=== PATIENT | male | born 1945 | race Caucasian/White ===

== ENCOUNTER → 2018-04-02 | Day surgery (SDC) | payer MEDICARE, OTHER ==
[~2018-04-02] MED LIST: AMLODIPINE BESYL5 MG PO; ASPIR 8181 MG; ATORVASTATIN CA20 MG PO; CIPRO500 MG PO; DEXAMETHASONE SOD PHOS INJ 4 MG/ML VIAL ONE; FENTANYL CITRATE/PF 100MCG/2 ML INJ ONE; FUROSEMIDE40 MG PO; LEVOFLOXACIN 500MG/D5W 100ML 100 ML IV ONE; LIDOCAINE HCL 2% LOCAL INJ 5 ML SDV VIAL INJ ONE; LYRICA50 MG; MIDAZOLAM HCL 2 MG/2 ML VIAL ONE; NOVOLOG100 UNIT/1; ONDANSETRON HCL INJ 2 MG/ML VIAL ONE; OXYBUTYNIN CHLOR5 MG PO; PIOGLITAZONE PO; PLOGLITAZONE; PROPOFOL IV EMULSION 10 MG/ML 20 ML VIAL ONE; SEVOFLURANE INHAL SOLN 250 ML PEN BTL ONE; TROUJEO; TYLENOL WITH C1 EACH PO; ZEBETA10 MG PO
--- OUTSIDE RECORDS SUMMARY | 2018-04-02 07:32 | XMS REPORT | Clinical Summary ---
Author Author [facility] L [facility] Organization [facility] Address Unknown Phone Unavailable Care Team Providers Care Ultrasound Spec Name Role Phone Paulino Mills DO PCP Allergies Comments Active Allergy Reactions Severity Noted Date Patient states, "It just made me feel funny." Iodine 06/04/2016 Medications End Date Status Medication Sig Dispensed Refills Start Date Active gabapentin (NEURONTIN) Take 600 mg 0 600 mg tablet by mouth 3 7 (three) times a day. Active HYDROcodone-acetaminophen Take 1 tablet 0 (NORCO) 7.5-325 mg per by mouth 6 tablet every 4 (four) hours. Active traMADol-acetaminophen Take 1 tablet 0 (ULTRACET) 37.5-325 mg by mouth 3 7 per tablet (three) times a day as needed. Active pantoprazole (PROTONIX) Take 40 mg by 2 40 MG EC tablet mouth once 7 daily. Active BD ULTRA-FINE SLIME PEN USE 3 NEEDLES 32 gauge x 5/32" DIRECTED WITH 6 needle INSULIN INJECTION 4 TIMES A DAY. Active LYRICA 50 mg capsule Take 50 mg by 0 mouth 3 6 (three) times a day. Active albuterol (PROVENTIL) 2.5 USE 1 UNIT 0 mg /3 mL (0.083 %) DOSE PER 6 nebulizer solution NEBULIZER 3-4 TIMES A DAY Active diazePAM (VALIUM) 5 MG Take 5 mg by 5 tablet mouth 2 (two) 6 times a day as needed for anxiety (related to virtigo). Active ONETOUCH VERIO strip test TEST BLOOD 3 strips GLUCOSE 4 6 TIMES PER DAY Active tamsulosin (FLOMAX) 0.4 Take 0.4 mg 1 mg capsule,extended by mouth once 6 release 24hr daily. Active LANTUS SOLOSTAR 100 INJECT 48 1 unit/mL injection (pen) UNITS IN THE 6 MORNING, 40 UNITS AT NIGHT WITH TITRATION, TOTAL DAILY DOSE UP TO 90 UNITS Active NOVOLOG FLEXPEN 100 INJECT SUB- Q 1 unit/mL insulin pen 26 UNITS 15 6 MINUTES BEFORE EACH MEAL THREE TIMES A DAY Active glimepiride (AMARYL) 4 MG Take 4 mg by 0 tablet mouth as needed. Active fexofenadine (GURINDER) Take 180 mg 0 180 MG tablet by mouth daily as needed. Active aspirin (ECOTRIN) 81 MG Take 81 mg by 0 enteric coated tablet mouth daily. Active atorvastatin (LIPITOR) 80 Take 80 mg by 0 MG tablet mouth daily. Active ONETOUCH DELICA LANCETS 0 30 gauge misc 7 Active meclizine (ANTIVERT) 25 Take 25 mg by 0 mg tablet mouth every 8 7 (eight) hours as needed for dizziness. 12/26/2017 Discontinued ciprofloxacin (CIPRO) 500 Take 500 mg 0 MG tablet by mouth 7 every 12 (twelve) hours. 12/28/2017 Discontinued acyclovir (ZOVIRAX) 800 TAKE 1 TABLET 0 MG tablet BY MOUTH 5 X 7 DAILY FOR 10 DAYS (4 HOURS APART ). 12/22/2017 Discontinued amlodipine-benazepril TAKE 1 1 (LOTREL) 10-20 mg per CAPSULE(S) BY 6 capsule MOUTH DAILY 12/25/2017 Discontinued fluticasone (FLONASE) 50 USE 2 SPRAYS 1 mcg/actuation nasal spray IN EACH 6 NOSTRIL NEEDED 12/25/2017 Discontinued promethazine (PHENERGAN) TAKE 1 TABLET 5 25 MG tablet BY MOUTH 6 TWICE A DAY NEEDED NAUSEA 12/25/2017 Discontinued DECONEX DMX 10-15-380 mg TAKE 1 TABLET 0 tablet BY MOUTH 7 EVERY 6 TO 8 HOURS NEEDED COUGH/CONGEST ION 12/25/2017 Discontinued bisoprolol-hydrochlorothi Take 1 tablet 4 azide (ZIAC) 5-6.25 mg by mouth once 7 per tablet daily. 12/26/2017 Discontinued traMADol (ULTRAM) 50 mg Take 50 mg by 0 tablet mouth 3 7 (three) times a day as needed. 12/30/2017 Discontinued pioglitazone (ACTOS) 15 Take 1 tablet 30 tablet 0 MG tablet (15 mg total) 8 by mouth daily with breakfast for 30 days. 01/26/2018 bisoprolol-hydrochlorothi Take 1 tablet 30 tablet 0 azide (ZIAC) 10-6.25 mg by mouth 8 per tablet daily for 30 days. 01/26/2018 amLODIPine (NORVASC) 10 Take 1 tablet 30 tablet 0 mg tablet (10 mg total) 8 by mouth daily for 30 days. 02/06/2018 ciprofloxacin (CIPRO) 250 Take 1 tablet 84 tablet 0 MG tablet (250 mg 8 total) by mouth 2 (two) times a day for 42 days. 12/30/2017 Discontinued furosemide (LASIX) 40 mg Take 1 tablet 60 tablet 0 tablet (40 mg total) 8 by mouth 2 (two) times a day for 30 days. 01/29/2018 furosemide (LASIX) 40 mg Take 1 tablet 30 tablet 0 tablet (40 mg total) 8 by mouth daily for 30 days. Active Problems Problem Noted Date Dyspnea 12/27/2017 REINALDO inhibitor-aggravated angioedema 12/23/2017 Acute renal failure superimposed on stage 3 chronic kidney disease 12/23/2017 Allergic reaction to food 12/22/2017 Left lower quadrant pain 06/04/2016 Epigastric pain 06/04/2016 Bloating 06/04/2016 Hx of colonic polyps 06/04/2016 Herpes zoster without complication 06/04/2016 Diverticulosis of large intestine without hemorrhage 06/04/2016 Encounters Care Team Description Date Type Specialty Kel Rowe MD Hematuria syndrome; Calculus of kidney; Calculus of ureter 03/27/2018 Hospital Radiology Encounter Kel Rowe MD Hematuria syndrome; Uric acid nephrolithiasis 02/28/2018 Hospital Radiology Encounter Paulino Mills DO Acute bronchitis, unspecified organism 02/20/2018 Hospital Radiology Encounter Paulino Mills DO Acute bronchitis, unspecified organism (Primary Dx) 02/20/2018 Transcribe Access Orders Kel Rowe MD Hematuria syndrome (Primary Dx); Uric acid nephrolithiasis 02/13/2018 Transcribe Access Orders Virginie Alcantara MD Khan, Kamran Ahmed, MD Dyspnea, unspecified type (Primary Dx) 12/27/2017 Hospital General Surgery - Encounter 12/30/2017 Ivone Conn MD 12/25/2017 Anesthesia General Surgery Event Kel Rowe MD Cysto Retrograde-Bilateral, Stent Placement 12/25/2017 Surgery General Surgery Syed Espinosa MD 12/22/2017 Hospital General Surgery - Encounter 12/26/2017 Syed Espinosa MD 12/22/2017 Orders Only General Internal Medicine after 04/01/2017 Family History Medical History Relation Name Comments Diabetes Brother No Known Problems Father Colon cancer Maternal Grandmother No Known Problems Mother Diabetes Sister Relation Name Status Comments Brother Alive Father Maternal Grandmother Mother Sister Alive Social History Date Tobacco Use Types Packs/Day Years Used Never Smoker Smokeless Tobacco: Never Used Tobacco Cessation: Counseling Given: No Alcohol Use Drinks/Week oz/Week Comments No Sex Assigned at Date Recorded Not on file Industry Job Start Date Occupation Not on file Not on file Not on file Travel End Travel History Travel Start No recent travel history available. Last Filed Vital Signs Time Taken Vital Sign Reading 12/30/2017 4:05 PM CDT Blood Pressure 140/69 12/30/2017 4:05 PM CDT Pulse 76 12/30/2017 4:05 PM CDT Temperature 36.8 C (98.3 F) 12/30/2017 4:05 PM CDT Respiratory Rate 17 12/30/2017 4:05 PM CDT Oxygen Saturation 95% - Inhaled Oxygen - Concentration 12/27/2017 11:41 AM CDT Weight 116 kg (255 lb) 12/27/2017 11:41 AM CDT Height 177.8 cm (5' 10") 12/27/2017 11:41 AM CDT Body Mass Index 36.59 Plan of Treatment Health Maintenance Due Date Last Done Comments COLON CANCER SCREENING 1994 SHINGRIX VACCINE (1 of 2) 1994 ZOSTER VACCINE 2004 PNEUMOCOCCAL 2009 POLYSACCHARIDE VACCINE AGE 65 AND OVER PNEUMOCOCCAL-13 2009 INFLUENZA VACCINE 11/20/2017 Implants Device Identifier Shelf Expiration Date Model / Serial / Lot Implanted Type Area Manufactur er 10/17/2020 [id number] / / [id number] Stent Set Ureteral [facility] Surgical N/A: N/A COOK 6fr X 28cm - [id number] Stents UROLOGICAL Implanted: Qty: 1 on 12/25/2017 by Kel Rowe MD Procedures Comments Procedure Name Priority Date/Time Associated Diagnosis XR ABDOMEN 1 VW Routine 03/27/2018 Hematuria syndrome 2:12 PM MURAL PAINTER Calculus of kidney Calculus of ureter ESTIMATED GFR Routine 02/28/2018 9:42 AM MURAL PAINTER POC CREATININE Routine 02/28/2018 9:[address] ABDOMEN PELVIS WO Routine 02/28/2018 Hematuria syndrome CONTRAST 9:13 AM MURAL PAINTER Uric acid nephrolithiasis XR CHEST 2 VW Routine 02/20/2018 Acute bronchitis, 11:01 AM CDT unspecified organism POC GLUCOSE Routine 12/30/2017 4:00 PM CDT POC GLUCOSE Routine 12/30/2017 11:55 AM CDT ECG 12-LEAD STAT 12/30/2017 9:46 AM CDT ZZESTIMATED GFR Routine 12/30/2017 6:28 AM CDT COMPREHENSIVE METABOLIC Routine 12/30/2017 PANEL 6:28 AM CDT HC COMPLETE BLD COUNT Routine 12/30/2017 W/AUTO DIFF 6:28 AM CDT POC GLUCOSE Routine 12/30/2017 6:14 AM CDT POC GLUCOSE Routine 12/29/2017 8:31 PM CDT POC GLUCOSE Routine 12/29/2017 5:11 PM CDT POC GLUCOSE Routine 12/29/2017 11:47 AM CDT POC GLUCOSE Routine 12/29/2017 7:08 AM CDT POC GLUCOSE Routine 12/28/2017 8:36 PM CDT POC GLUCOSE Routine 12/28/2017 5:27 PM CDT POC GLUCOSE Routine 12/28/2017 4:05 PM CDT POC GLUCOSE Routine 12/28/2017 11:59 AM CDT ECHOCARDIOGRAM 2D STAT 12/28/2017 COMPLETE W MMODE SPECTRAL 9:15 AM CDT COLOR DOPPLER ([id number]) POC GLUCOSE Routine 12/28/2017 5:46 AM CDT THYROID STIMULATING Routine 12/28/2017 HORMONE 4:52 AM CDT TROPONIN Timed 12/28/2017 4:52 AM CDT TROPONIN Timed 12/28/2017 2:23 AM CDT TROPONIN Timed 12/27/2017 9:08 PM CDT POC GLUCOSE Routine 12/27/2017 8:53 PM CDT NM LUNG VENTILATION STAT 12/27/2017 PERFUSION 4:55 PM CDT POC GLUCOSE Routine 12/27/2017 4:34 PM CDT URINALYSIS SCREEN AND STAT 12/27/2017 MICROSCOPY, WITH REFLEX 1:15 PM CDT TO CULTURE GRAM STAIN STAT 12/27/2017 1:15 PM CDT URINE CULTURE STAT 12/27/2017 1:15 PM CDT ZZESTIMATED GFR Routine 12/27/2017 12:08 PM CDT B NATRIURETIC PEPTIDE Routine 12/27/2017 12:08 PM CDT TROPONIN Routine 12/27/2017 12:08 PM CDT COMPREHENSIVE METABOLIC Routine 12/27/2017 PANEL 12:08 PM CDT PROTHROMBIN TIME WITH INR Routine 12/27/2017 12:08 PM CDT HC COMPLETE BLD COUNT Routine 12/27/2017 W/AUTO DIFF 12:08 PM CDT ECG ED PRELIMINARY Routine 12/27/2017 INTERPRETATION 11:53 AM CDT ECG 12-LEAD STAT 12/27/2017 11:51 AM CDT XR CHEST 1 VW PORTABLE STAT 12/27/2017 11:47 AM CDT POC GLUCOSE Routine 12/26/2017 4:15 PM CDT POC GLUCOSE Routine 12/26/2017 2:13 PM CDT POC GLUCOSE Routine 12/26/2017 11:10 AM CDT ZZESTIMATED GFR Routine 12/26/2017 6:27 AM CDT BASIC METABOLIC PANEL Routine 12/26/2017 6:27 AM CDT POC GLUCOSE Routine 12/26/2017 6:[address] ABDOMEN PELVIS WO Routine 12/25/2017 CONTRAST 11:12 PM CDT POC GLUCOSE Routine 12/25/2017 8:19 PM CDT POC GLUCOSE Routine 12/25/2017 6:27 PM CDT FL PYELOGRAM RETROGRADE Routine 12/25/2017 4:43 PM CDT POC GLUCOSE Routine 12/25/2017 4:39 PM CDT POC GLUCOSE Routine 12/25/2017 3:23 PM CDT POC GLUCOSE Routine 12/25/2017 12:45 PM CDT POC GLUCOSE Routine 12/25/2017 12:23 PM CDT POC GLUCOSE Routine 12/25/2017 11:41 AM CDT POC GLUCOSE Routine 12/25/2017 10:48 AM CDT POC GLUCOSE Routine 12/25/2017 6:13 AM CDT ZZESTIMATED GFR Routine 12/25/2017 5:42 AM CDT PHOSPHORUS LEVEL Routine 12/25/2017 5:42 AM CDT MAGNESIUM LEVEL Routine 12/25/2017 5:42 AM CDT BASIC METABOLIC PANEL Routine 12/25/2017 5:42 AM CDT POC GLUCOSE Routine 12/24/2017 10:15 PM CDT POC GLUCOSE Routine 12/24/2017 8:48 PM CDT POC GLUCOSE Routine 12/24/2017 4:12 PM CDT PROSTATE SPECIFIC ANTIGEN Routine 12/24/2017 12:26 PM CDT ZZESTIMATED GFR STAT 12/24/2017 12:26 PM CDT HC COMPLETE BLD COUNT STAT 12/24/2017 W/AUTO DIFF 12:26 PM CDT COMPREHENSIVE METABOLIC STAT 12/24/2017 PANEL 12:26 PM CDT POC GLUCOSE Routine 12/24/2017 11:06 AM CDT POC GLUCOSE Routine 12/24/2017 6:17 AM CDT POC GLUCOSE Routine 12/23/2017 11:15 PM CDT POC GLUCOSE Routine 12/23/2017 8:38 PM CDT POC GLUCOSE Routine 12/23/2017 4:34 PM CDT POC GLUCOSE Routine 12/23/2017 12:13 PM CDT US RENAL Routine 12/23/2017 9:28 AM CDT ZZESTIMATED GFR Routine 12/23/2017 9:23 AM CDT COMPREHENSIVE METABOLIC Routine 12/23/2017 PANEL 9:23 AM CDT HC COMPLETE BLD COUNT Routine 12/23/2017 W/AUTO DIFF 9:23 AM CDT POC GLUCOSE Routine 12/23/2017 6:07 AM CDT POC GLUCOSE Routine 12/23/2017 4:08 AM CDT POC GLUCOSE Routine 12/23/2017 12:42 AM CDT POC GLUCOSE Routine 12/22/2017 10:42 PM CDT POC GLUCOSE Routine 12/22/2017 8:53 PM CDT POC GLUCOSE Routine 12/22/2017 7:13 PM CDT POC GLUCOSE Routine 12/22/2017 6:07 PM CDT ZZESTIMATED GFR Routine 12/22/2017 4:10 PM CDT COMPREHENSIVE METABOLIC Routine 12/22/2017 PANEL 4:10 PM CDT HC COMPLETE BLD COUNT Routine 12/22/2017 W/AUTO DIFF 4:10 PM CDT URINE CULTURE Routine 12/22/2017 4:00 PM CDT URINALYSIS SCREEN AND Routine 12/22/2017 MICROSCOPY, WITH REFLEX 3:56 PM CDT TO CULTURE ECG 12-LEAD Routine 12/22/2017 3:14 PM CDT POC GLUCOSE Routine 12/22/2017 2:27 PM CDT after 04/01/2017 Results * XR Abdomen 1 Vw (03/27/2018 2:12 PM MURAL PAINTER) Narrative Performed At EXAMINATION:XR ABDOMEN 1 VW [facility] CLINICAL HISTORY:R31.9 Hematuriaunspecified, N20.0 Calculus of kidney COMPARISON:None. IMPRESSION: A stent is present in the left ureter. There are no associated calcifications There is a nonspecific bowel gas pattern. No free air is identified. Age related changes are present throughout the bony structures without evidence of a suspicious focal lesion. [id number] Procedure Note Hm Interface, Radiology Results Incoming - 03/27/2018 5:52 PM MURAL PAINTER EXAMINATION: XR ABDOMEN 1 VW CLINICAL HISTORY: R31.9 Hematuria unspecified, N20.0 Calculus of kidney COMPARISON: None. IMPRESSION: A stent is present in the left ureter. There are no associated calcifications There is a nonspecific bowel gas pattern. No free air is identified. Age related changes are present throughout the bony structures without evidence of a suspicious focal lesion. [id number] Performing Organization Address City/[facility]/Zipcode Phone Number [facility] [address] [place] [address] * Estimated GFR (02/28/2018 9:42 AM MURAL PAINTER) Estimated GFR 27 (A) mL/min/1.73 m2 [facility] DEPARTMENT OF Comment: PATHOLOGY AND CatergoryUnitsInte GENOMIC MEDICINE rpretation G1 >=90 Normal or high G2 60-89Mildly decreased [id number] Mildly to moderately decreased [id number] Moderately to severely decreased G4 15-29Severely decreased G5 <15Kidney failure The eGFR was calculated using the Chronic Kidney Disease Epidemiology Collaboration (CKD-EPI) equation. Interpretation is based on recommendations of the National Kidney Foundation-Kidney Disease Outcomes Quality Initiative (NKF-KDOQI) published in 2014. Specimen Blood Performing Organization Address City/[facility] Phone Number [facility] DEPARTMENT OF [address] [place] [address] PATHOLOGY AND GENOMIC MEDICINE * POC creatinine (02/28/2018 9:42 AM MURAL PAINTER) POC creatinine 2.3 (H) 0.7 - 1.2 mg/dl [facility] DEPARTMENT OF Comment: PATHOLOGY AND Meter ID: [id number] GENOMIC MEDICINE Doctor Of Podiatric Medicine: Adelaida Zamorano Specimen Blood Performing Organization Address [facility]/Zipcode Phone Number [facility] DEPARTMENT OF [address] [place] [address] PATHOLOGY AND GENOMIC MEDICINE * CT Abdomen Pelvis Wo Contrast (02/28/2018 9:13 AM MURAL PAINTER) Only the most recent of 2 results within the time period is included. Narrative Performed At EXAMINATION:CT ABDOMEN PELVIS WO CONTRAST [facility] CLINICAL HISTORY:72 years Male R31.9 Hematuriaunspecified, N20.0 Calculus of kidney, R31.9N20.0 TECHNIQUE:Multiple axial images of the abdomen and pelvis were obtained without intravenous administration of iodinated contrast. Sagittal and coronal computerized reformatted images were also obtained. The lack of intravenous contrast reduces the sensitivity of detecting solid organ disease. CT imaging was performed with iterative reconstruction techniques and/or automated exposure control to reduce radiation dose. COMPARISON: December 25, 2017 FINDINGS: The liver and spleen appear normal in size and texture. The adrenal glands, and pancreas appear within normal limits. There are multiple surgical clips in the gallbladder fossa consistent with previous cholecystectomy stable since previous. The right kidney appears unremarkable. No calculi or obstruction are noted. On the left there is persistent moderately severe hydronephrosis little changed although perhaps slightly increased over previous. A double pigtail ureteral stent is in place within the renal pelvis adjacent to a calcification in the renal pelvis calcification measures approximately 11 mm x 11 mm. There appears to be another small stone fragment along the course of the ureter proximally measuring approximately 3 mm. These calcifications were not visualized within the ureter on the prior study. Multiple additional calcifications within the left renal pelvis are present with a group of calculi in the upper pole cyst in particular which are difficult to measure as they are adjacent to one another with several measured measured in the 6 mm to 7 mm range. Additional calculi in the mid to lower pole are also noted. The left stent otherwise projects with the distal end curled in the bladder. The colon demonstrates diverticulosis without inflammatory change. Prostate appears mildly enlarged. The appendix appears normal. Extensive vascular calcification is present. There is wedging of one of the lumbar vertebra at L2 and also wedging at T11 unchanged from previous IMPRESSION: 1. Moderate dilation of the left renal pelvis slightly increased when compared to previous. 2. Calculus adjacent to the stent within the renal pelvis measuring approximately 11 x 11 mm and another calculus in the 3 mm range or slightly greater along the course of the stent in the proximal ureter at approximately the L4 level. 3. Multiple currently nonobstructing left intrarenal calculi favoring the upper pole the largest in the 7 mm range [id number] Procedure Note Hm Interface, Radiology Results Incoming - 02/28/2018 9:28 AM MURAL PAINTER EXAMINATION: CT ABDOMEN PELVIS WO CONTRAST CLINICAL HISTORY:72 years Male R31.9 Hematuria unspecified, N20.0 Calculus of kidney, R31.9 N20.0 TECHNIQUE: Multiple axial images of the abdomen and pelvis were obtained without intravenous administration of iodinated contrast. Sagittal and coronal computerized reformatted images were also obtained. The lack of intravenous contrast reduces the sensitivity of detecting solid organ disease. CT imaging was performed with iterative reconstruction techniques and/or automated exposure control to reduce radiation dose. COMPARISON: December 25, 2017 FINDINGS: The liver and spleen appear normal in size and texture. The adrenal glands, and pancreas appear within normal limits. There are multiple surgical clips in the gallbladder fossa consistent with previous cholecystectomy stable since previous. The right kidney appears unremarkable. No calculi or obstruction are noted. On the left there is persistent moderately severe hydronephrosis little changed although perhaps slightly increased over previous. A double pigtail ureteral stent is in place within the renal pelvis adjacent to a calcification in the renal pelvis calcification measures approximately 11 mm x 11 mm. There appears to be another small stone fragment along the course of the ureter proximally measuring approximately 3 mm. These calcifications were not visualized within the ureter on the prior study. Multiple additional calcifications within the left renal pelvis are present with a group of calculi in the upper pole cyst in particular which are difficult to measure as they are adjacent to one another with several measured measured in the 6 mm to 7 mm range. Additional calculi in the mid to lower pole are also noted. The left stent otherwise projects with the distal end curled in the bladder. The colon demonstrates diverticulosis without inflammatory change. Prostate appears mildly enlarged. The appendix appears normal. Extensive vascular calcification is present. There is wedging of one of the lumbar vertebra at L2 and also wedging at T11 unchanged from previous IMPRESSION: 1. Moderate dilation of the left renal pelvis slightly increased when compared to previous. 2. Calculus adjacent to the stent within the renal pelvis measuring approximately 11 x 11 mm and another calculus in the 3 mm range or slightly greater along the course of the stent in the proximal ureter at approximately the L4 level. 3. Multiple currently nonobstructing left intrarenal calculi favoring the upper pole the largest in the 7 mm range [id number] Performing Organization Address City/State/Zipcode Phone Number [facility] [address] [place] [address] * XR Chest 2 Vw (02/20/2018 11:01 AM CDT) Narrative Performed At EXAMINATION:XR CHEST 2 VW [facility] CLINICAL HISTORY:J20.9 Acute bronchitisunspecified, j20.9 COMPARISON:12/27/2017 IMPRESSION: Lungs are clear without infiltrate, pleural effusion or pneumothorax. Cardiomediastinal silhouette is enlarged, unchanged. Calcified thoracic aortic atherosclerotic changes. Osseous degenerative changes. [id number] Procedure Note Hm Interface, Radiology Results Incoming - 02/20/2018 11:08 AM CDT EXAMINATION: XR CHEST 2 VW CLINICAL HISTORY: J20.9 Acute bronchitis unspecified, j20.9 COMPARISON: 12/27/2017 IMPRESSION: Lungs are clear without infiltrate, pleural effusion or pneumothorax. Cardiomediastinal silhouette is enlarged, unchanged. Calcified thoracic aortic atherosclerotic changes. Osseous degenerative changes. [id number] Performing Organization Address City/[facility] Phone Number [facility] [address] [place] [address] * POC glucose (12/30/2017 4:00 PM CDT) Only the most recent of 44 results within the time period is included. POC glucose 216 (H) 65 - 100 mg/dL [facility] DEPARTMENT OF Comment: PATHOLOGY AND Meter ID: [id number] GENOMIC MEDICINE Doctor Of Podiatric Medicine: Tony Green Performing Organization Address City/State/Zipcode Phone Number [facility] DEPARTMENT [address] [address] PATHOLOGY AND GENOMIC MEDICINE * ECG 12 lead (12/30/2017 9:46 AM CDT) Only the most recent of 3 results within the time period is included. Ventricular rate 87 [facility] Atrial rate 87 [facility] NE interval 130 [facility] QRSD interval 98 [facility] QT interval 354 [facility] QTC interval 425 [facility] P axis 1 29 [facility] QRS axis 1 64 [facility] T wave axis 41 [facility] EKG impression Sinus rhythm with frequent [facility] premature ventricular complexes-Possible Left atrial enlargement-Borderline ECG-In automated comparison with ECG of 27-DEC-2017 11:51,-premature ventricular complexes are now present-Vent. rate has increased BY32 BPM- Performing Organization Address City/State/Zipcode Phone Number [facility] [place] [address] [place] [address] * Estimated GFR (12/30/2017 6:28 AM CDT) Only the most recent of 7 results within the time period is included. GFR Non Af Amer 23 (A) mL/min/1.73 m2 [facility] DEPARTMENT OF PATHOLOGY AND GENOMIC MEDICINE GFR Af Amer 28 (A) mL/min/1.73 m2 [facility] DEPARTMENT OF Comment: PATHOLOGY AND Chronic kidney disease: <60 GENOMIC MEDICINE mL/min/1.73m2 Kidney failure: <15 mL/min/1.73m2 The estimated GFR is calculated from the IDMS-traceable Modification of Diet in Renal Disease Equation. The accuracy of the calculation is poor when the creatinine is normal. Calculated values >90 mL/min/1.73m2 are not reported. This equation has not been validated in children (<18 years), women, the elderly (>70 years), or ethnic groups other than Caucasians and Americans. Specimen Plasma specimen Performing Organization Address City/State/Zipcode Phone Number [facility] [address] [place] [address] PATHOLOGY AND GENOMIC MEDICINE * CBC with platelet and differential (12/30/2017 6:28 AM CDT) Only the most recent of 5 results within the time period is included. WBC 7.1 4.2 - 11.0 k/uL [facility] DEPARTMENT OF PATHOLOGY AND GENOMIC MEDICINE RBC 4.05 4.04 - 5.86 m/uL [facility] DEPARTMENT OF PATHOLOGY AND GENOMIC MEDICINE HGB 11.3 (L) 13.0 - 17.3 g/dL [facility] DEPARTMENT OF PATHOLOGY AND GENOMIC MEDICINE HCT 36.8 34.0 - 45.0 % [facility] [facility] DEPARTMENT OF PATHOLOGY AND GENOMIC MEDICINE MCV 90.9 80.0 - 98.0 fL [facility] DEPARTMENT OF PATHOLOGY AND GENOMIC MEDICINE MCH 27.9 27.0 - 34.0 pg [facility] DEPARTMENT OF PATHOLOGY AND GENOMIC MEDICINE MCHC 30.7 (L) 31.5 - 36.5 g/dL [facility] DEPARTMENT OF PATHOLOGY AND GENOMIC MEDICINE RDW - SD 45.9 37.0 - 51.0 fL [facility] DEPARTMENT OF PATHOLOGY AND GENOMIC MEDICINE MPV 10.5 (H) 7.4 - 10.4 fL [facility] DEPARTMENT OF PATHOLOGY AND GENOMIC MEDICINE Platelet count 180 150 - 400 k/uL [facility] DEPARTMENT OF PATHOLOGY AND GENOMIC MEDICINE Nucleated RBC 0.00 /100 WBC [facility] DEPARTMENT OF PATHOLOGY AND GENOMIC MEDICINE Neutrophils 57.5 36.0 - 66.0 % [facility] DEPARTMENT OF PATHOLOGY AND GENOMIC MEDICINE Lymphocytes 23.3 (L) 24.0 - 44.0 % [facility] DEPARTMENT OF PATHOLOGY AND GENOMIC MEDICINE Monocytes 12.2 (H) 0.0 - 6.0 % [facility] DEPARTMENT OF PATHOLOGY AND GENOMIC MEDICINE Eosinophils 5.6 0.0 - 6.0 % [facility] DEPARTMENT OF PATHOLOGY AND GENOMIC MEDICINE Basophils 0.4 0.0 - 1.2 % [facility] DEPARTMENT PATHOLOGY AND GENOMIC MEDICINE Immature granulocytes 1.0 0.0 - 1.0 % [facility] OF PATHOLOGY AND GENOMIC MEDICINE Specimen Blood Performing Organization Address City/State/Zipcode Phone Number [place] [address] [place] [address] PATHOLOGY AND GENOMIC MEDICINE * Comprehensive metabolic panel (12/30/2017 6:28 AM CDT) Only the most recent of 5 results within the time period is included. Sodium 143 135 - 150 mEq/L [facility] DEPARTMENT OF PATHOLOGY AND GENOMIC MEDICINE Potassium 4.6 3.5 - 5.0 mEq/L [facility] DEPARTMENT OF PATHOLOGY AND GENOMIC MEDICINE Chloride 101 98 - 112 mEq/L [facility] DEPARTMENT PATHOLOGY AND GENOMIC MEDICINE CO2 33 (H) 24 - 31 mmol/L [facility] DEPARTMENT OF PATHOLOGY AND GENOMIC MEDICINE Anion gap 9@ANIO 7 - 15 mEq/L [facility] DEPARTMENT OF PATHOLOGY AND GENOMIC MEDICINE BUN 36 (H) 7 - 18 mg/dL [facility] DEPARTMENT OF PATHOLOGY AND GENOMIC MEDICINE Creatinine 2.70 (H) 0.70 - 1.20 mg/dL [facility] DEPARTMENT OF PATHOLOGY AND GENOMIC MEDICINE Glucose 185 (H) 65 - 100 mg/dL [facility] DEPARTMENT OF PATHOLOGY AND GENOMIC MEDICINE Calcium 9.3 8.8 - 10.2 mg/dL [facility] DEPARTMENT OF PATHOLOGY AND GENOMIC MEDICINE Protein 6.6 6.3 - 8.3 g/dL [facility] DEPARTMENT OF PATHOLOGY AND GENOMIC MEDICINE Albumin 3.4 (L) 3.5 - 5.0 g/dL [facility] DEPARTMENT OF PATHOLOGY AND GENOMIC MEDICINE A/G ratio 1.1 0.7 - 3.8 [facility] DEPARTMENT OF PATHOLOGY AND GENOMIC MEDICINE Alkaline phosphatase 58 0 - 129 U/L [facility] DEPARTMENT OF PATHOLOGY AND GENOMIC MEDICINE AST 23 10 - 50 U/L [facility] DEPARTMENT OF PATHOLOGY AND GENOMIC MEDICINE ALT 29 5 - 50 U/L [facility] DEPARTMENT OF PATHOLOGY AND GENOMIC MEDICINE Total bilirubin 0.5 0.2 - 1.2 mg/dL [facility] DEPARTMENT OF PATHOLOGY AND GENOMIC MEDICINE Specimen Plasma specimen Performing Organization Address City/State/Zipcode Phone Number [place] [phone] [place] [address] PATHOLOGY AND GENOMIC MEDICINE * Echocardiogram complete w contrast and 3D if needed (12/28/2017 9:15 AM CDT) Velocity Ratio (V1/V2) 0.77 m/s [facility] IVS,d 0.97 cm [facility] EF 61.23 % [facility] Ascending aorta 3.96 cm [facility] LVPWD,d 1.00 cm [facility] AoV Mean PG 4.65 mmHg [facility] AV LVOT peak gradient 4.98 mmHg [facility] MV mean gradient 1.05 mmHg [facility] MV valve area p 1/2 3.07 cm2 [facility] method PV Pk Grad 3.83 mmHg [facility] E/A ratio 1.05 [facility] E wave decelartion time 226.09 msec [facility] IVRT 64.70 msec [facility] LVOT Diam,S 2.10 cm [facility] LVOT area 3.46 cm2 [facility] LVOT Vmax 1.14 m/s [facility] LVOT VTI 0.29 m [facility] AoV Peak PG 8.87 mmHg [facility] MV Peak E Shashank 0.96 m/s [facility] MV stenosis pressure 1/2 71.76 ms [facility] time MV Peak A Shashank 0.91 m/s [facility] Ao Root Diameter 3.65 cm [facility] AoV Area, Vmax 2.60 cm2 [facility] AoV Area, VTI 2.98 cm2 [facility] AoV Vmax 1.49 m/s [facility] Left Atrium Dimension 4.72 cm [facility] Anterior LV,d 5.35 cm [facility] LV,s 3.58 cm [facility] PV VMAX 0.96 m/s [facility] RVSP (TR) 45.18 mmHg [facility] TR Vpeak 2.97 mm/s [facility] MV E A ratio 1.06 mmHg [facility] TR pk grad 35.18 mmHg [facility] MR peak grad 4.47 mmHg [facility] RVSP 45.18 mmHg [facility] Ao Root Diameter 3.65 cm [facility] LV SYS VOL 53.63 ml [facility] LV MILLER VOL 138.32 ml [facility] LA area s A4C 25.78 cm2 [facility] LA Vol MOD A4C 83.50 ml [facility] LV SV Teich 2D 84.69 ml [facility] LVOT CO 15.81 l/min [facility] LVOT HR for LVOT CO 166.83 bpm [facility] MV Vmax 1.06 m [facility] MV VTI Tips 0.37 m [facility] AoV Vmn 1.04 [facility] IVS s 2D 1.31 [facility] AoV VTI 0.35 m [facility] LVOT Vmn 0.77 [facility] LVOT mean grad 2.78 mmHg [facility] LVPW s PLAX 1.50 cm [facility] MV Decel slope 4.25 m/s2 [facility] Narrative Performed At [facility] Left atrium size is mildly dilated. The left ventricle chamber size is normal. There is mild left ventricular concentric hypertrophy. Left Ventricular ejection fraction is 50 - 55%. The mitral valve appears thickened. There is mild mitral valve regurgitation. Spectral Doppler shows impaired relaxation pattern of left ventricular diastolic filling. There is pericardial effusion. Performing Organization Address City/State/[facility] Mex[facility]ode Phone Number [facility] [address] [place] [address] * Troponin (12/28/2017 4:52 AM CDT) Only the most recent of 4 results within the time period is included. Troponin <0.30 0.00 - 0.30 ng/mL [facility] DEPARTMENT OF Comment: PATHOLOGY AND 0.11 - 1.49 GENOMIC MEDICINE ng/mlMay indicate increased risk of acute coronary syndrome. >=1.5 ng/ml Consistent with acute myocardial infarction. The diagnostic value of a single normal or non-diagnostic result is questionable.Serial samples at 2-6 hour intervals are required to rule out acute myocardial injury. Specimen Plasma specimen Performing Organization Address City/State/Zipcode Phone Number [facility] OF [address] [place] [address] PATHOLOGY AND GENOMIC MEDICINE * Thyroid stimulating hormone (12/28/2017 4:52 AM CDT) TSH 1.96 0.27 - 4.20 uIU/mL [facility] DEPARTMENT OF PATHOLOGY AND GENOMIC MEDICINE Specimen Plasma specimen Performing Organization Address City/[facility]/Zipcode Phone Number [facility] DEPARTMENT OF [address] [place] [address] PATHOLOGY AND GENOMIC MEDICINE * NM Lung Ventilation Perfusion (12/27/2017 4:55 PM CDT) Narrative Performed At CLINICAL HISTORY: [facility] TECHNIQUE: The patient breathed 15-20 mCi of xenon-133 gas through a closed ventilation system while dynamic imaging of the lungs was performed in the posterior and anterior projections. The patient was then injected with 5 mCi of [id number] intravenously, followed by imaging of the lungs in anterior, posterior, and oblique projections. FINDINGS: Nonsegmental, though large, perfusion defect left upper lobe near the hilum and aortic arch. Minimal air trapping in the left lung on ventilation. IMPRESSION: Low Probability for pulmonary embolism. [id number] Procedure Note Interface, Radiology Results Incoming - 12/27/2017 5:01 PM CDT CLINICAL HISTORY: [facility] contrast allergy TECHNIQUE: The patient breathed 15-20 mCi of xenon-133 gas through a closed ventilation system while dynamic imaging of the lungs was performed in the posterior and anterior projections. The patient was then injected with 5 mCi of [id number] intravenously, followed by imaging of the lungs in anterior, posterior, and oblique projections. FINDINGS: Nonsegmental, though large, perfusion defect left upper lobe near the hilum and aortic arch. Minimal air trapping in the left lung on ventilation. IMPRESSION: Low Probability for pulmonary embolism. [id number] Performing Organization Address City/[facility]/Zipcode Phone Number [facility] [address] [place] [address] * Urinalysis screen and microscopy, with reflex to culture (12/27/2017 1:15 PM CDT) Only the most recent of 2 results within the time period is included. Specimen site Clean catch [facility] DEPARTMENT OF PATHOLOGY AND GENOMIC MEDICINE Color, UA Yellow [facility] DEPARTMENT OF PATHOLOGY AND GENOMIC MEDICINE Appearance, UA Clear [facility] DEPARTMENT OF PATHOLOGY AND GENOMIC MEDICINE Specific gravity, UA 1.015 1.001 - 1.035 [facility] DEPARTMENT OF PATHOLOGY AND GENOMIC MEDICINE pH, UA 6.0 5.0 - 8.5 [facility] DEPARTMENT OF PATHOLOGY AND GENOMIC MEDICINE Protein, UA 2+ (A) Negative [facility] DEPARTMENT OF PATHOLOGY AND GENOMIC MEDICINE Glucose, UA 2+ (A) Negative [facility] DEPARTMENT OF PATHOLOGY AND GENOMIC MEDICINE Ketones, UA Negative Negative [facility] DEPARTMENT OF PATHOLOGY AND GENOMIC MEDICINE Bilirubin, UA Negative Negative [facility] DEPARTMENT OF PATHOLOGY AND GENOMIC MEDICINE Blood, UA Large (A) Negative [facility] DEPARTMENT OF PATHOLOGY AND GENOMIC MEDICINE Nitrite, UA Negative Negative [facility] DEPARTMENT OF PATHOLOGY AND GENOMIC MEDICINE Urobilinogen, UA Negative <2.0 [facility] DEPARTMENT OF PATHOLOGY AND GENOMIC MEDICINE Leukocyte esterase, UA Moderate (A) Negative [facility] DEPARTMENT OF PATHOLOGY AND GENOMIC MEDICINE WBC, UA 102 (H) 0 - 1 /HPF [facility] DEPARTMENT OF PATHOLOGY AND GENOMIC MEDICINE RBC, UA >200 (H) 0 - 5 /HPF [facility] DEPARTMENT OF PATHOLOGY AND GENOMIC MEDICINE Bacteria, UA None seen None seen [facility] DEPARTMENT OF PATHOLOGY AND GENOMIC MEDICINE Yeast, UA None seen [facility] DEPARTMENT OF PATHOLOGY AND GENOMIC MEDICINE Yeast with pseudohyphae, None seen [facility] DEPARTMENT OF UA PATHOLOGY AND GENOMIC MEDICINE Specimen Urine Performing Organization Address City/[facility]/Zipcode Phone Number [facility] DEPARTMENT [address] [place] [address] PATHOLOGY AND GENOMIC MEDICINE * Gram stain (12/27/2017 1:15 PM CDT) Gram stain result No organisms seen [facility] DEPARTMENT OF Comment: PATHOLOGY AND Specimen Information GENOMIC MEDICINE Specimen Source: Urine Specimen Site: Clean catch Specimen Urine Performing Organization Address City/[facility] Mexicocode Phone Number [facility] [place] [place] [address] PATHOLOGY AND GENOMIC MEDICINE * Urine culture (12/27/2017 1:15 PM CDT) Only the most recent of 2 results within the time period is included. Urine culture isolate Gram positive frandy [facility] DEPARTMENT OF 10-1 cfu/ml PATHOLOGY AND (A) GENOMIC MEDICINE Comment: Specimen Information Specimen Source: Urine Specimen Site: Clean catch Specimen Urine Performing Organization Address City/[facility]/Zipcode Phone Number [facility] DEPARTMENT OF [address] [place] [id number] PATHOLOGY AND GENOMIC MEDICINE * Prothrombin time with INR (12/27/2017 12:08 PM CDT) Prothrombin time 14.0 12.0 - 15.0 sec [facility] DEPARTMENT OF PATHOLOGY AND GENOMIC MEDICINE INR 1.07 0.92 - 1.12 [facility] DEPARTMENT OF Comment: PATHOLOGY AND For patients on anticoagulant GENOMIC MEDICINE therapy, reference ranges below: Indication: INR Value Treatment of Venous Thrombosis, 2.0-3.0 pulmonary emboli, or prophylaxis of a venous thrombosis, or systemic emboli. High dose, high risk patients 3.0-4.5 with mechanical valves. NOTE:INR values over 3.0 are sometimes associated with gastrointestinal hemorrhage, especially values over 4.0. Specimen Blood Performing Organization Address City/[facility]/[place] [address] PATHOLOGY AND [email or web address] MEDICINE * B natriuretic peptide (12/27/2017 12:08 PM CDT) BNP 211 (H) 0 - 100 pg/mL [facility] DEPARTMENT OF PATHOLOGY AND GENOMIC MEDICINE Specimen Blood Performing Organization Address City/[facility] [place] [address] PATHOLOGY AND [email or web address] 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 No change compared to previous Hypoinflation of the lungs unchanged. Mild interstitial scarring as before. No infiltrate congestion or effusion. No pneumothorax Cardiomediastinal silhouette normal size. Mild vascular ectasia and atherosclerosis Old rib fractures on the right. Cholecystectomy clips incidentally noted. Contrast in the colon Single view chest [id number] Procedure Note Hm Interface, Radiology Results Incoming - 12/27/2017 11:54 AM CDT EXAMINATION: XR CHEST 1 VW PORTABLE CLINICAL HISTORY: Chest Pain COMPARISON: March 20, 2016 chest IMPRESSION: No acute abnormality. No change compared to previous Hypoinflation of the lungs unchanged. Mild interstitial scarring as before. No infiltrate congestion or effusion. No pneumothorax Cardiomediastinal silhouette normal size. Mild vascular ectasia and atherosclerosis Old rib fractures on the right. Cholecystectomy clips incidentally noted. Contrast in the colon Single view chest [id number] Performing Organization Address [facility]/Zipcode Phone Number [facility] [address] [place] [address] * Basic metabolic panel (12/26/2017 6:27 AM CDT) Only the most recent of 2 results within the time period is included. Sodium 143 135 - 150 mEq/L [facility] DEPARTMENT OF PATHOLOGY AND GENOMIC MEDICINE Potassium 4.4 3.5 - 5.0 mEq/L [facility] DEPARTMENT OF PATHOLOGY AND GENOMIC MEDICINE Chloride 106 98 - 112 mEq/L [facility] DEPARTMENT OF PATHOLOGY AND GENOMIC MEDICINE CO2 27 24 - 31 mmol/L [facility] DEPARTMENT OF PATHOLOGY AND GENOMIC MEDICINE Anion gap 10@ANIO 7 - 15 mEq/L [facility] DEPARTMENT OF PATHOLOGY AND GENOMIC MEDICINE BUN 34 (H) 7 - 18 mg/dL [facility] DEPARTMENT OF PATHOLOGY AND GENOMIC MEDICINE Creatinine 1.90 (H) 0.70 - 1.20 mg/dL [facility] DEPARTMENT OF PATHOLOGY AND GENOMIC MEDICINE Glucose 108 (H) 65 - 100 mg/dL [facility] DEPARTMENT OF PATHOLOGY AND GENOMIC MEDICINE Calcium 8.7 (L) 8.8 - 10.2 mg/dL [facility] OF PATHOLOGY AND GENOMIC MEDICINE Specimen Plasma specimen Performing Organization Address City/[facility]/Zipcode Phone Number [facility] [address] [place] [address] PATHOLOGY AND GENOMIC MEDICINE * FL Pyelogram Retrograde (12/25/2017 4:43 PM CDT) Narrative Performed At EXAMINATION:[place] [facility] CLINICAL HISTORY:Left retrograde pyelogram. COMPARISON:August 02, 2016 TECHNIQUE: C-arm fluoroscopy was performed with a singlefluoroscopic spot image taken of the central abdomen and a portion of the upper pelvis upper pelvis in the anterior projection in a narrow field of view in the OR. A total KV of107, and mA of 4.8, and fluoroscopic time of26.2 seconds was offered to Dr.Magdy Rowe for the procedure. The DAP (dose absorbed product) is: 9539 mGy-cm^2 A total of10 mL of Omnipaque [address]Magdy Rowe FINDINGS: The single view presented demonstrates significant left UP junction narrowing with extrinsic displacement of the mid and lower infundibulocalyceal complex with incomplete opacification of the left upper pole infundibulum. The findings represent space-occupying lesions as before and probably represent a large parapelvic cysts are mass. Further assessment with CT scanning would be useful, if clinically indicated. IMPRESSION: Base occupying lesion with extrinsic displacement of the infundibular calyceal complexes as well as incomplete opacification of left upper pole infundibular calyceal complex. Left UP junction narrowing. [id number] Procedure Note Hm Interface, Radiology Results Incoming - 12/25/2017 4:55 PM CDT EXAMINATION: FL PYELOGRAM RETROGRADE CLINICAL HISTORY: Left retrograde pyelogram. COMPARISON: August 02, 2016 TECHNIQUE: C-arm fluoroscopy was performed with a singlefluoroscopic spot image taken of the central abdomen and a portion of the upper pelvis upper pelvis in the anterior projection in a narrow field of view in the OR. A total KV of 107, and mA of 4.8, and fluoroscopic time of 26.2 seconds was offered to Dr. Kel Rowe for the procedure. The DAP (dose absorbed product) is: 9539 mGy-cm^2 A total of 10 mL of Omnipaque [address] Kel Rowe FINDINGS: The single view presented demonstrates significant left UP junction narrowing with extrinsic displacement of the mid and lower infundibulocalyceal complex with incomplete opacification of the left upper pole infundibulum. The findings represent space-occupying lesions as before and probably represent a large parapelvic cysts are mass. Further assessment with CT scanning would be useful, if clinically indicated. IMPRESSION: Base occupying lesion with extrinsic displacement of the infundibular calyceal complexes as well as incomplete opacification of left upper pole infundibular calyceal complex. Left UP junction narrowing. [id number] Performing Organization Address City/State/Zipcode Phone Number [facility] [address] [place] [address] * Phosphorus level (12/25/2017 5:42 AM CDT) Phosphorus 3.2 2.4 - 4.5 mg/dL [facility] DEPARTMENT OF PATHOLOGY AND GENOMIC MEDICINE Specimen Plasma specimen Performing Organization Address City/[facility]/Zipcode Phone Number [facility] DEPARTMENT OF [address] [place] [address] PATHOLOGY AND GENOMIC MEDICINE * Magnesium level (12/25/2017 5:42 AM CDT) Magnesium 2.30 1.60 - 2.40 mg/dL [facility] DEPARTMENT OF PATHOLOGY AND GENOMIC MEDICINE Specimen Plasma specimen Performing Organization Address [facility] Mexicocode Phone Number [facility] DEPARTMENT [place] [phone] PATHOLOGY AND GENOMIC MEDICINE * Prostate specific antigen (12/24/2017 12:26 PM CDT) PSA 3.2 0.0 - 4.0 ng/mL [facility] DEPARTMENT OF Comment: PATHOLOGY AND The MARGOT 8000 PSA immunoassay [facility] was used. Results obtained with different assay methods or kits should not be used interchangeably and may be different. Specimen Plasma specimen Performing Organization Address [facility] Mex[facility]ocode Phone Number [facility] DEPARTMENT OF [address] [place] [address] PATHOLOGY AND [email or web address] MEDICINE * US Renal (12/23/2017 9:28 AM CDT) Narrative Performed At Renal ultrasound, 12/23/2017 9:41 AM [facility] Clinical history: Renal function Comparison: CT September 24, 2016 Technique: Grayscale and color Doppler ultrasound. Findings: Right kidney: 10.7 x 5.6 x 4.2 cm. Cortical thickness 1.5 cm. Left kidney: 13.7 x 7 x 6.8 cm. Cortical thickness 1.1 cm. Both kidneys demonstrate mildly increased parenchymal echogenicity. The right kidney is otherwise normal. The left kidney demonstrates moderate hydronephrosis, with a dilated renal pelvis. Bladder: Volume 107 mL. Otherwise unremarkable. Impression: 1.Echogenic kidneys in keeping with chronic medical renal disease. 2.Moderate left hydronephrosis with a dilated left renal pelvis consistent with known chronic ureteropelvic junction obstruction. Procedure Note Interface, Radiology Results Incoming - 12/23/2017 9:48 AM CDT Renal ultrasound, 12/23/2017 9:41 AM Clinical history: Renal function Comparison: CT September 24, 2016 Technique: Grayscale and color Doppler ultrasound. Findings: Right kidney: 10.7 x 5.6 x 4.2 cm. Cortical thickness 1.5 cm. Left kidney: 13.7 x 7 x 6.8 cm. Cortical thickness 1.1 cm. Both kidneys demonstrate mildly increased parenchymal echogenicity. The right kidney is otherwise normal. The left kidney demonstrates moderate hydronephrosis, with a dilated renal pelvis. Bladder: Volume 107 mL. Otherwise unremarkable. Impression: 1. Echogenic kidneys in keeping with chronic medical renal disease. 2. Moderate left hydronephrosis with a dilated left renal pelvis consistent with known chronic ureteropelvic junction obstruction. Performing Organization Address City/State/Zipcode Phone Number [facility] [id number] [place] [address] after 04/01/2017 Insurance Payer Benefit Subscriber ID Type Phone Address Plan / Group MEDICARE MEDICARE xxxxxxxxxxx Medicare [place], [place] PART A AND B AETNA AETNA xxxxxxxxxx HMO HMO,POS,EP O, [facility] ([place]) [place] [address] Advance Directives Patient has advance care planning documents on file. For more information, clair saxena contact: Jorge L David [address] [place] [address]
--- NOTE | 2018-04-02 11:56 | Operative Report ---
DATE OF PROCEDURE: April 02, 2018 PREOPERATIVE DIAGNOSES 1. Left renal pelvic calculus, about 12 x 12 mm. 2. Left double-J ureteral stent. POSTOPERATIVE DIAGNOSES 1. Left renal pelvic calculus, about 12 x 12 mm. 2. Left double-J ureteral stent. OPERATION: Left renal extracorporeal shock wave lithotripsy. MAINTENANCE TECHNICIAN: Dr. Clayton. ANESTHESIA: General. INDICATIONS: Mr. King is a 72-year-old male who presented with acute onset of severe pain on the left side. Workup showed that he has a large 12 x 12-mm calculus in the renal pelvis with obstruction. He underwent cystoscopy and stent placement. He was brought back at this time for definitive ESWL. PROCEDURE IN DETAIL: This patient was placed on the table in the supine position and the stone was brought into position between F1 and F2 of the fluoroscopic monitors. Once this was done, the lithotripsy was started, starting at 2 kilovolts and slowly and gradually increased to 7 kilovolts. Observation of the stone pulverization was done at 250 to 300 shocks intermittently. At 4,000 shocks, it was felt that the stone may have been completely pulverized, although there are some areas of relatively larger fragments were still there. Patient tolerated the procedure well and was taken to the recovery room in satisfactory condition. PLAN: For this patient is to return to the office in 1 week when at that time a KUB will be performed and, if the stones have completely been pulverized and gone, will make arrangements to remove the stent. Otherwise will bring him back for repeat lithotripsy and again if the stones have completely pulverized and fragmented into small pieces, will make arrangements for the stent removal at the same time. Job#: [id number] MINNA
[2018-04-02 13:30] VITALS: BP 119/81
== END | disposition home or self-care (01) ==
LOC: OR 07:30
PROVIDERS: ATTEND Specialist
DX: N20.0 Calculus of kidney (principal); Z96.0 Presence of urogenital implants; G47.33 Obstructive sleep apnea (adult) (pediatric); I25.2 Old myocardial infarction; K21.9 Gastro-esophageal reflux disease without esophagitis; E11.22 Type 2 diabetes mellitus with diabetic chronic kidney disease; I12.9 Hypertensive chronic kidney disease with stage 1 through stage 4 chronic kidney disease, or unspecified chronic kidney disease; N18.9 Chronic kidney disease, unspecified; I49.3 Ventricular premature depolarization; Z91.041 Radiographic dye allergy status; Z79.82 Long term (current) use of aspirin; Z79.4 Long term (current) use of insulin
CPT/HCPCS: 36415; 50590; 82948; 93005; J1100; J1956; J2001; J2250; J2405; J2704

== ENCOUNTER → 2018-04-23 | Day surgery (SDC) | payer MEDICARE, OTHER ==
[~2018-04-23] MED LIST changes: +IOPAMIDOL 610MG/1ML 300 MG/ML VIAL IV ONE
--- OUTSIDE RECORDS SUMMARY | 2018-04-23 08:07 | XMS REPORT | Clinical Summary ---
Author Author [facility] L [employer] Address Unknown Phone Unavailable Care Team Providers Care Marketing Analyst Name Role Phone Paulino Mills DO PCP [...] Description Date Type Specialty Kel Rowe MD Calculus of kidney; Calculus of ureter 04/10/2018 Hospital Radiology Encounter Kel Rowe MD Hematuria syndrome; Calculus of kidney; Calculus of ureter 03/27/2018 Hospital Radiology Encounter Kel Rowe MD Hematuria syndrome; Uric acid nephrolithiasis 02/28/2018 Hospital Radiology Encounter Paulino Mills, Acute bronchitis, unspecified organism 02/20/2018 Hospital Radiology Encounter Paulino Mills, Acute bronchitis, unspecified organism (Primary Dx) 02/20/2018 [...] 12/22/2017 Orders Only General Internal Medicine after 04/22/2017 Family History Medical History Relation Name Comments [...] Last Done Comments COLON CANCER SCREENING 1994 SHINGLES VACCINES (1 of 1994 2) PNEUMOCOCCAL 2009 POLYSACCHARIDE VACCINE AGE 65 AND OVER PNEUMOCOCCAL-13 2009 INFLUENZA VACCINE 11/20/2017 Implants Device Identifier Shelf Expiration Date Model / Serial / Lot Implanted Type Area Manufactur er 10/17/2020 [id number] / / [id number] Stent Set Ureteral [facility] N/A: N/A COOK 6fr X 28cm - [id number] Stents UROLOGICAL Implanted: Qty: 1 on 12/25/2017 by Kel Rowe MD Procedures Comments Procedure Name Priority Date/Time Associated Diagnosis XR ABDOMEN 1 VW Routine 04/10/2018 Calculus of kidney 9:22 AM ACID CONDITIONING WORKER Calculus of ureter XR ABDOMEN 1 VW Routine 03/27/2018 Hematuria syndrome 2:12 PM [employer] CONDITIONING WORKER Calculus of kidney Calculus of ureter ESTIMATED GFR Routine 02/28/2018 9:42 AM AC[employer] CONDITIONING WORKER POC CREATININE Routine 02/28/2018 9:42 AM [employer] [address] ABDOMEN PELVIS WO Routine 02/28/2018 Hematuria syndrome CONTRAST 9:13 AM ACID CONDITIONING WORKER Uric acid nephrolithiasis XR CHEST 2 VW [...] MMODE SPECTRAL 9:15 AM CDT COLOR DOPPLER (90113) POC GLUCOSE Routine 12/28/2017 5:46 AM CDT [...] GLUCOSE Routine 12/22/2017 2:27 PM CDT after 04/22/2017 Results * XR Abdomen 1 Vw (04/10/2018 9:22 AM AC[employer] CONDITIONING WORKER) Only the most recent of 2 results within the time period is included. Narrative Performed At EXAMINATION:XR ABDOMEN 1 VW RADIANT CLINICAL HISTORY:N20.0 Calculus of kidney, N20.1 Calculus of ureter COMPARISON:03/27/2018 IMPRESSION: A left-sided double-J ureteral stent is again noted. There are no suspicious calcifications along the stent. No definite calcifications are seen over either renal shadow. Bowel gas pattern is unremarkable. Osseous structures are intact. Cholecystectomy clips are noted. Heart size is enlarged. [id number] Procedure Note Hm Interface, Radiology Results Incoming - 04/10/2018 10:09 AM ACID CONDITIONING WORKER EXAMINATION: XR ABDOMEN 1 VW CLINICAL HISTORY: N20.0 Calculus of kidney, N20.1 Calculus of ureter COMPARISON: 03/27/2018 IMPRESSION: A left-sided double-J ureteral stent is again noted. There are no suspicious calcifications along the stent. No definite calcifications are seen over either renal shadow. Bowel gas pattern is unremarkable. Osseous structures are intact. Cholecystectomy clips are noted. Heart size is enlarged. [facility]-[id number] Performing Organization Address City/State/Zipcode Phone Number [facility] [address] [place] [address] * Estimated GFR (02/28/2018 9:42 AM ACID CONDITIONING WORKER) Estimated GFR 27 (A) mL/min/1.73 m2 [facility] OF Comment: PATHOLOGY AND CatergoryUnitsInte GENOMIC MEDICINE rpretation G1 >=90 Normal or high G2 60-89Mildly decreased M5n30-64 Mildly to moderately decreased T1h05-03 Moderately to severely decreased G4 15-29Severely decreased G5 <15Kidney failure The eGFR was calculated using the Chronic Kidney Disease Epidemiology Collaboration (CKD-EPI) equation. Interpretation is based on recommendations of the National Kidney Foundation-Kidney Disease Outcomes Quality Initiative (NKF-KDOQI) published in 2014. Specimen Blood Performing Organization Address City/State/Zipcode Phone Number [facility] [place] [address] PATHOLOGY AND GENOMIC MEDICINE * POC creatinine (02/28/2018 9:42 AM ACID CONDITIONING WORKER) POC creatinine 2.3 (H) 0.7 - 1.2 mg/dl [facility] OF Comment: PATHOLOGY AND Meter ID: [id number] GENOMIC MEDICINE Territory Development Manager: Adelaida Zamorano Specimen Blood Performing Organization Address City/State/Zipcode Phone Number [facility] DE[facility]MENT OF [address] [place] [address] PATHOLOGY AND GENOMIC MEDICINE * CT Abdomen Pelvis Wo Contrast (02/28/2018 9:13 AM ACID CONDITIONING WORKER) Only the most recent of 2 results [...] the largest in the 7 mm range [id number] Procedure Note Hm Interface, Radiology Results Incoming - 02/28/2018 9:28 AM ACID CONDITIONING WORKER EXAMINATION: CT ABDOMEN PELVIS WO CONTRAST CLINICAL [...] the largest in the 7 mm range [id number] Performing Organization Address [facility] Phone Number [facility] [address] [place] [address] * XR Chest 2 Vw (02/20/2018 11:01 AM CDT) Narrative Performed At EXAMINATION:XR CHEST 2 VW RADIANT CLINICAL HISTORY:J20.9 Acute bronchitisunspecified, j20.9 COMPARISON:12/27/2017 IMPRESSION: Lungs are clear without infiltrate, pleural effusion or pneumothorax. Cardiomediastinal silhouette is enlarged, unchanged. Calcified thoracic aortic atherosclerotic changes. Osseous degenerative changes. [facility]-[id number] Procedure Note Hm Interface, Radiology Results Incoming - 02/20/2018 11:08 AM CDT EXAMINATION: XR CHEST 2 VW CLINICAL HISTORY: J20.9 Acute bronchitis unspecified, j20.9 COMPARISON: 12/27/2017 IMPRESSION: Lungs are clear without infiltrate, pleural effusion or pneumothorax. Cardiomediastinal silhouette is enlarged, unchanged. Calcified thoracic aortic atherosclerotic changes. Osseous degenerative changes. [facility]-[id number] Performing Organization Address [facility] Hospital[facility]ova Phone Number [facility] [address] [place] [address] * POC glucose (12/30/2017 4:00 PM CDT) Only the most recent of 44 results within the time period is included. POC glucose 216 (H) 65 - 100 mg/dL [facility] OF Comment: PATHOLOGY AND Meter ID: [id number] GENOMIC MEDICINE Territory Development Manager: Tony Green Performing Organization Address City/[facility]/Zipcode Phone Number [facility] DE[facility] OF [facility] [place] [address] PATHOLOGY AND GENOMIC MEDICINE * ECG 12 lead (12/30/2017 9:46 AM CDT) Only the most recent of 3 results within the time period is included. Ventricular rate 87 [facility] Atrial rate [address] interval 130 [facility] QRSD interval 98 [facility] QT interval 354 [facility] QTC interval 425 [facility] P axis 1 29 [facility] QRS axis 1 64 [facility] M[facility] T wave axis 41 [facility] EKG impression Sinus rhythm with frequent [facility] premature ventricular complexes-Possible Left atrial enlargement-Borderline ECG-In automated comparison with ECG of 27-DEC-2017 11:51,-premature ventricular complexes are now present-Vent. rate has increased BY32 BPM- Performing Organization Address City/[facility] Phone Number [facility] MUSE [address] [place] [address] * Estimated GFR (12/30/2017 6:28 AM CDT) Only the most recent of 7 results within the time period is included. GFR Non Af Amer 23 (A) mL/min/1.73 m2 [facility] OF PATHOLOGY AND GENOMIC MEDICINE GFR Af Amer 28 (A) mL/min/1.73 m2 [facility] OF Comment: PATHOLOGY AND Chronic kidney [...] Americans. Specimen Plasma specimen Performing Organization Address City/[facility]/Zipcode Phone Number [place] [address] [place] [address] PATHOLOGY AND GENOMIC MEDICINE * CBC with platelet and differential (12/30/2017 6:28 AM CDT) Only the most recent of 5 results within the time period is included. WBC 7.1 4.2 - 11.0 k/uL [facility] OF PATHOLOGY AND GENOMIC MEDICINE RBC 4.05 4.04 - 5.86 m/uL [facility] OF PATHOLOGY AND GENOMIC MEDICINE HGB 11.3 (L) 13.0 - 17.3 g/dL [facility] OF PATHOLOGY AND GENOMIC MEDICINE HCT 36.8 34.0 - 45.0 % [facility] OF PATHOLOGY AND GENOMIC MEDICINE MCV 90.9 80.0 - 98.0 fL [facility] PATHOLOGY AND GENOMIC MEDICINE MCH 27.9 27.0 - 34.0 pg [facility] PATHOLOGY AND GENOMIC MEDICINE MCHC 30.7 (L) 31.5 - 36.5 g/dL [facility] PATHOLOGY AND GENOMIC MEDICINE RDW - SD 45.9 37.0 - 51.0 fL [facility] PATHOLOGY AND GENOMIC MEDICINE MPV 10.5 (H) 7.4 - 10.4 fL [facility] PATHOLOGY AND GENOMIC MEDICINE Platelet count 180 150 - 400 k/uL [facility] PATHOLOGY AND GENOMIC MEDICINE Nucleated RBC 0.00 /100 WBC [facility] PATHOLOGY AND GENOMIC MEDICINE Neutrophils 57.5 36.0 - 66.0 % [facility] PATHOLOGY AND GENOMIC MEDICINE Lymphocytes 23.3 (L) 24.0 - 44.0 % [facility] PATHOLOGY AND GENOMIC MEDICINE Monocytes 12.2 (H) 0.0 - 6.0 % [facility] PATHOLOGY AND GENOMIC MEDICINE Eosinophils 5.6 0.0 - 6.0 % [facility] PATHOLOGY AND GENOMIC MEDICINE Basophils 0.4 0.0 - 1.2 % [facility] PATHOLOGY AND GENOMIC MEDICINE Immature granulocytes 1.0 0.0 - 1.0 % [facility] PATHOLOGY AND GENOMIC MEDICINE Specimen Blood Performing Organization Address City/State/Zipcode Phone Number [place] [address] [place] [address] PATHOLOGY AND GENOMIC MEDICINE * Comprehensive metabolic panel (12/30/2017 6:28 AM CDT) Only the most recent of 5 results within the time period is included. Sodium 143 135 - 150 mEq/L [facility] OF PATHOLOGY AND GENOMIC MEDICINE Potassium 4.6 3.5 - 5.0 mEq/L [facility] OF PATHOLOGY AND GENOMIC MEDICINE Chloride 101 98 - 112 mEq/L [facility] PATHOLOGY AND GENOMIC MEDICINE CO2 33 (H) 24 - 31 mmol/L [facility] PATHOLOGY AND GENOMIC MEDICINE Anion gap 9@ANIO 7 - 15 mEq/L [facility] OF PATHOLOGY AND GENOMIC MEDICINE BUN 36 (H) 7 - 18 mg/dL [facility] OF PATHOLOGY AND GENOMIC MEDICINE Creatinine 2.70 (H) 0.70 - 1.20 mg/dL [facility] OF PATHOLOGY AND GENOMIC MEDICINE Glucose 185 (H) 65 - 100 mg/dL [facility] DEPARTMENT OF PATHOLOGY AND GENOMIC MEDICINE Calcium 9.3 8.8 - 10.2 mg/dL [facility] OF PATHOLOGY AND GENOMIC MEDICINE Protein 6.6 6.3 - 8.3 g/dL [facility] OF PATHOLOGY AND GENOMIC MEDICINE Albumin 3.4 (L) 3.5 - 5.0 g/dL [facility] OF PATHOLOGY AND GENOMIC MEDICINE A/G ratio 1.1 0.7 - 3.8 [facility] OF PATHOLOGY AND GENOMIC MEDICINE Alkaline phosphatase 58 0 - 129 U/L [facility] OF PATHOLOGY AND GENOMIC MEDICINE AST 23 10 - 50 U/L [facility] OF PATHOLOGY AND GENOMIC MEDICINE ALT 29 5 - 50 U/L [facility] OF PATHOLOGY AND GENOMIC MEDICINE Total bilirubin 0.5 0.2 - 1.2 mg/dL [facility] OF PATHOLOGY AND GENOMIC MEDICINE Specimen Plasma specimen Performing Organization Address City/State/Zipcode Phone Number [place] [address] [place] [address] PATHOLOGY AND GENOMIC MEDICINE * Echocardiogram complete [...] There is pericardial effusion. Performing Organization Address City/State/Zipcode Phone Number [facility] [address] [place] [address] * Troponin (12/28/2017 4:52 AM CDT) Only the most recent of 4 results within the time period is included. Troponin <0.30 0.00 - 0.30 ng/mL [facility] OF Comment: PATHOLOGY AND 0.11 - 1.49 GENOMIC MEDICINE ng/mlMay indicate increased risk of acute coronary syndrome. >=1.5 ng/ml Consistent with acute myocardial infarction. The diagnostic value of a single normal or non-diagnostic result is questionable.Serial samples at 2-6 hour intervals are required to rule out acute myocardial injury. Specimen Plasma specimen Performing Organization Address City/State/Zipcode Phone Number [facility] OF [address] [facility] [place] [address] PATHOLOGY AND GENOMIC MEDICINE * Thyroid stimulating hormone (12/28/2017 4:52 AM CDT) TSH 1.96 0.27 - 4.20 uIU/mL [facility] OF PATHOLOGY AND GENOMIC MEDICINE Specimen Plasma specimen Performing Organization Address City/[facility] Phone Number [address] [place] [address] PATHOLOGY AND GENOMIC MEDICINE * NM Lung Ventilation Perfusion (12/27/2017 4:55 PM CDT) Narrative Performed At CLINICAL HISTORY: [facility] TECHNIQUE: The patient breathed 15-20 mCi of xenon-133 gas through a closed ventilation system while dynamic imaging of the lungs was performed in the posterior and anterior projections. The patient was then injected with 5 mCi of [id number] intravenously, followed by imaging of the lungs in anterior, posterior, and oblique projections. FINDINGS: Nonsegmental, though large, perfusion defect left upper lobe near the hilum and aortic arch. Minimal air trapping in the left lung on ventilation. IMPRESSION: Low Probability for pulmonary embolism. [facility]-[id number] Procedure Note Interface, Radiology Results Incoming - 12/27/2017 5:01 PM CDT CLINICAL HISTORY: [facility] contrast allergy TECHNIQUE: The patient breathed 15-20 mCi of xenon-133 gas through a closed ventilation system while dynamic imaging of the lungs was performed in the posterior and anterior projections. The patient was then injected with 5 mCi of [id number] intravenously, followed by imaging of the lungs in anterior, posterior, and oblique projections. FINDINGS: Nonsegmental, though large, perfusion defect left upper lobe near the hilum and aortic arch. Minimal air trapping in the left lung on ventilation. IMPRESSION: Low Probability for pulmonary embolism. [facility]-[id number] Performing Organization Address City/[facility]/Zipcode Phone Number [facility] [address] * Urinalysis screen and microscopy, with reflex to culture (12/27/2017 1:15 PM CDT) Only the most recent of 2 results within the time period is included. Specimen site Clean catch [facility] OF PATHOLOGY AND GENOMIC MEDICINE Color, UA Yellow [facility] OF PATHOLOGY AND GENOMIC MEDICINE Appearance, UA Clear [facility] OF PATHOLOGY AND GENOMIC MEDICINE Specific gravity, UA 1.015 1.001 - 1.035 [facility] OF PATHOLOGY AND GENOMIC MEDICINE pH, UA 6.0 5.0 - 8.5 [facility] OF PATHOLOGY AND GENOMIC MEDICINE Protein, UA 2+ (A) Negative [facility] OF PATHOLOGY AND GENOMIC MEDICINE Glucose, UA 2+ (A) Negative [facility] OF PATHOLOGY AND GENOMIC MEDICINE Ketones, UA Negative Negative [facility] OF PATHOLOGY AND GENOMIC MEDICINE Bilirubin, UA Negative Negative [facility] OF PATHOLOGY AND GENOMIC MEDICINE Blood, UA Large (A) Negative [facility] OF PATHOLOGY AND GENOMIC MEDICINE Nitrite, UA Negative Negative [facility] OF PATHOLOGY AND GENOMIC MEDICINE Urobilinogen, UA Negative <2.0 [facility] OF PATHOLOGY AND GENOMIC MEDICINE Leukocyte esterase, UA Moderate (A) Negative [facility] OF PATHOLOGY AND GENOMIC MEDICINE WBC, UA 102 (H) 0 - 1 /HPF [facility] OF PATHOLOGY AND GENOMIC MEDICINE RBC, UA >200 (H) 0 - 5 /HPF [facility] OF PATHOLOGY AND GENOMIC MEDICINE Bacteria, UA None seen None seen [facility] OF PATHOLOGY AND GENOMIC MEDICINE Yeast, UA None seen [facility] OF PATHOLOGY AND GENOMIC MEDICINE Yeast with pseudohyphae, None seen [facility] OF PATHOLOGY AND GENOMIC MEDICINE Specimen Urine Performing Organization Address City/State/Zipcode Phone Number [facility] [address] [place] [address] PATHOLOGY AND GENOMIC MEDICINE * Gram stain (12/27/2017 1:15 PM CDT) Gram stain result No organisms seen [facility] DEPARTMENT OF Comment: PATHOLOGY AND Specimen Information GENOMIC MEDICINE Specimen Source: Urine Specimen Site: Clean catch Specimen Urine Performing Organization Address City/State/Zipcode Phone Number [facility] [address] [place] [address] PATHOLOGY AND GENOMIC MEDICINE * Urine culture (12/27/2017 1:15 PM CDT) Only the most recent of 2 results within the time period is included. Urine culture isolate Gram positive frandy [facility] DEPARTMENT OF 10-1 cfu/ml PATHOLOGY AND (A) GENOMIC MEDICINE Comment: Specimen Information Specimen Source: Urine Specimen Site: Clean catch Specimen Urine Performing Organization Address City/State/Zipcode Phone Number [facility] DEPARTMENT OF [address] [place] [address] PATHOLOGY AND GENOMIC MEDICINE * Prothrombin time with INR (12/27/2017 12:08 PM CDT) Prothrombin time 14.0 12.0 - 15.0 sec [facility] OF PATHOLOGY AND GENOMIC MEDICINE INR 1.07 0.92 - 1.12 [facility] OF Comment: PATHOLOGY AND For patients on anticoagulant GENOMIC MEDICINE therapy, reference ranges below: Indication: INR Value Treatment of Venous Thrombosis, 2.0-3.0 pulmonary emboli, or prophylaxis of a venous thrombosis, or systemic emboli. High dose, high risk patients 3.0-4.5 with mechanical valves. NOTE:INR values over 3.0 are sometimes associated with gastrointestinal hemorrhage, especially values over 4.0. Specimen Blood Performing Organization Address City/[facility] Phone Number [facility] DE[facility]MENT OF [address] [place] [address] PATHOLOGY AND GENOMIC MEDICINE * B natriuretic peptide (12/27/2017 12:08 PM CDT) BNP 211 (H) 0 - 100 pg/mL [facility] OF PATHOLOGY AND GENOMIC MEDICINE Specimen Blood Performing Organization Address City/[facility] Hospitalcode Phone Number [facility] DE[facility]MENT OF [address] [place] [address] PATHOLOGY AND GENOMIC MEDICINE * ECG ED Preliminary Interpretation - NOT AN ORDER (12/27/2017 11:53 AM CDT) Narrative Performed At Virginie Alcantara MD 12/27/2017 11:53 AM ECG ED Preliminary Interpretation - Not an Order Performed by: VIRGINIE ALCANTARA Authorized by: VIRGINIE ALCANTARA ECG reviewed by ED Physician in the absence of a resource center teacher: yes Previous ECG: Previous ECG:Compared to current Interpretation: Interpretation: normal Rate: ECG rate:55 ECG rate assessment: bradycardic Rhythm: Rhythm: sinus rhythm and sinus bradycardia Ectopy: Ectopy: none QRS: QRS axis:Normal Conduction: Conduction: normal ST segments: ST segments:Normal T waves: T waves: normal * XR Chest 1 Vw Portable (12/27/2017 11:47 AM CDT) Narrative Performed At EXAMINATION:XR CHEST 1 VW PORTABLE [facility] CLINICAL HISTORY:Chest Pain COMPARISON:March 20, 2016 chest IMPRESSION: No acute abnormality. No change compared to previous Hypoinflation of the lungs unchanged. Mild interstitial scarring as before. No infiltrate congestion or effusion. No pneumothorax Cardiomediastinal silhouette normal size. Mild vascular ectasia and atherosclerosis Old rib fractures on the right. Cholecystectomy clips incidentally noted. Contrast in the colon Single view chest [facility]-[id number] Procedure Note Interface, Radiology Results Incoming - 12/27/2017 11:54 [...] Contrast in the colon Single view chest [id number] Performing Organization Address [facility] Hospitalcode Phone Number [facility] [address] [place] [address] * Basic metabolic panel (12/26/2017 6:27 AM CDT) Only the most recent of 2 results within the time period is included. Sodium 143 135 - 150 mEq/L [facility] OF PATHOLOGY AND GENOMIC MEDICINE Potassium 4.4 3.5 - 5.0 mEq/L [facility] OF PATHOLOGY AND GENOMIC MEDICINE Chloride 106 98 - 112 mEq/L [facility] OF PATHOLOGY AND GENOMIC MEDICINE CO2 27 24 - 31 mmol/L [facility] OF PATHOLOGY AND GENOMIC MEDICINE Anion gap 10@ANIO 7 - 15 mEq/L [facility] OF PATHOLOGY AND GENOMIC MEDICINE BUN 34 (H) 7 - 18 mg/dL [facility] OF PATHOLOGY AND GENOMIC MEDICINE Creatinine 1.90 (H) 0.70 - 1.20 mg/dL [facility] OF PATHOLOGY AND GENOMIC MEDICINE Glucose 108 (H) 65 - 100 mg/dL [facility] OF PATHOLOGY AND GENOMIC MEDICINE Calcium 8.7 (L) 8.8 - 10.2 mg/dL [facility] OF PATHOLOGY AND GENOMIC MEDICINE Specimen Plasma specimen Performing Organization Address City/[facility]/Zipcode Phone Number [address] [address] PATHOLOGY AND GENOMIC MEDICINE * FL Pyelogram Retrograde (12/25/2017 4:43 PM CDT) Narrative Performed At EXAMINATION:[place] PYELOGRAM RETROGRADE RADIANT CLINICAL HISTORY:Left retrograde pyelogram. COMPARISON:August 02, 2016 [...] infundibular calyceal complex. Left UP junction narrowing. [id number] Procedure Note Hm Interface, Radiology Results Incoming [...] infundibular calyceal complex. Left UP junction narrowing. [facility]-[id number] Performing Organization Address City/[facility]/Zipcode Phone Number [facility] [address] [place] [address] * Phosphorus level (12/25/2017 5:42 AM CDT) Phosphorus 3.2 2.4 - 4.5 mg/dL [facility] OF PATHOLOGY AND GENOMIC MEDICINE Specimen Plasma specimen Performing Organization Address [facility] Phone Number [facility] [place] [address] PATHOLOGY AND GENOMIC MEDICINE * Magnesium level (12/25/2017 5:42 AM CDT) Magnesium 2.30 1.60 - 2.40 mg/dL [facility] OF PATHOLOGY AND GENOMIC MEDICINE Specimen Plasma specimen Performing Organization Address [facility]code Phone Number [facility] [place] [address] PATHOLOGY AND GENOMIC MEDICINE * Prostate specific antigen (12/24/2017 12:26 PM CDT) PSA 3.2 0.0 - 4.0 ng/mL [facility] DEPARTMENT OF Comment: PATHOLOGY AND The MARGOT 8000 PSA immunoassay [facility] was used. Results obtained with different assay methods or kits should not be used interchangeably and may be different. Specimen Plasma specimen Performing Organization Address [facility] Phone Number [facility] [address] [place] [address] PATHOLOGY AND [employer] MEDICINE * US Renal (12/23/2017 9:28 AM CDT) Narrative Performed At Renal ultrasound, 12/23/2017 9:41 AM [facility] Clinical history: Renal function Comparison: CT September [...] known chronic ureteropelvic junction obstruction. Procedure Note Hm Interface, Radiology Results Incoming - 12/23/2017 9:48 [...] Performing Organization Address City/State/Zipcode Phone Number [facility] [phone] [place] [address] after 04/22/2017 Insurance Payer Benefit Subscriber ID Type Phone Address Plan / Group MEDICARE MEDICARE xxxxxxxxxxx Medicare [place], [place] PART A AND B AETNA AETNA xxxxxxxxxx HMO HMO,POS,EP O, [place]EC (Home) [place] [address] Advance Directives Patient has advance care planning documents on file. For more information, clair saxena contact: Jorge L David [address] [place] [address]
--- NOTE | 2018-04-23 10:05 | Diagnostic Imaging Report ---
EXAMINATION: CHEST 2 VIEWS INDICATION: Pre-op COMPARISON: None FINDINGS: TUBES and LINES: None. LUNGS: Moderate lung volumes. Mild patchy bibasilar opacities, likely atelectasis. There is no evidence of pneumonia or pulmonary edema. PLEURA: No pleural effusion or pneumothorax. HEART AND MEDIASTINUM: The cardiomediastinal silhouette is unremarkable. Atherosclerotic aortic calcifications. BONES AND SOFT TISSUES: No acute osseous lesion. Soft tissues are unremarkable. There are old healed bilateral rib fractures. UPPER ABDOMEN: No free air under the diaphragm. Clips and partially seen catheter are present in the upper abdomen on lateral view. IMPRESSION: No acute radiographic abnormality. Signed by: Dr. Tammie Santoro MD on 04/23/2018 10:02 AM
[2018-04-23 12:00] VITALS: BP 145/74
--- NOTE | 2018-04-23 12:32 | Operative Report ---
DATE OF PROCEDURE: April 23, 2018 PREOPERATIVE DIAGNOSES 1. Left renal pelvic calculus 8 x 10 mm. 2. Left double-J ureteral stent. POSTOPERATIVE DIAGNOSES 1. Left renal pelvic calculus 8 x 10 mm. 2. Left double-J ureteral stent. OPERATIONS PERFORMED 1. Left renal extracorporeal shockwave lithotripsy. 2. Cystoscopy and stent removal. 3. Vesicolitholapaxy for multiple bladder calculi. DEWATERER OPERATOR: ELLIOTT Lang. ANESTHETIC: General. Mr. King is a 72-year-old male who presented with a chief complaint of left renal pelvic calculus. He underwent previous cystoscopy and stent placement and lithotripsy. He had some fragments and about 8 to 10 mm of multiple stones. This patient was placed on the table in the supine position and the stones were brought into position between F1 and F2 of the fluoroscopic monitor. The lithotripsy was then started, starting at 2 kV and slowly and gradually increased to 7 kV. At 3000 shocks it was felt that the stones have completely pulverized. Observation of the stone pulverization was done intermittently at 200 to 250 shocks. At 3000 shocks it was felt that the stones have completely pulverized and gone. This patient was then placed on the table in the lithotomy position and was prepped and draped in a sterile manner. Under direct vision and fluoroscopic control, the tail end of the stent was grasped and removed completely. There were multiple, multiple bladder stones in the bladder that needed to be removed. The vesicolitholapaxy was performed and washing of all the stones was done. Patient tolerated the procedure well and was taken to the recovery room in satisfactory condition. Estimated blood loss was 0 mL. Plans for this patient are to return to the office in 2 weeks, when at that time a KUB will be performed. 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 The bladder wall was moderately to markedly trabeculated, which will need a TURP laser. Job#: [id number] EV
== END | disposition home or self-care (01) ==
LOC: OR 08:05
PROVIDERS: ATTEND Specialist
DX: N20.0 Calculus of kidney (principal); Z46.6 Encounter for fitting and adjustment of urinary device; N32.89 Other specified disorders of bladder; N40.1 Benign prostatic hyperplasia with lower urinary tract symptoms; N13.8 Other obstructive and reflux uropathy; H91.90 Unspecified hearing loss, unspecified ear; G47.33 Obstructive sleep apnea (adult) (pediatric); I10 Essential (primary) hypertension; E78.5 Hyperlipidemia, unspecified; I49.3 Ventricular premature depolarization; I25.2 Old myocardial infarction; E11.9 Type 2 diabetes mellitus without complications; K21.9 Gastro-esophageal reflux disease without esophagitis; Z91.041 Radiographic dye allergy status; Z79.82 Long term (current) use of aspirin; Z79.4 Long term (current) use of insulin
CPT/HCPCS: 36415; 50590; 52317; 71046; 82948; 88300; J1100; J1956; J2001; J2250; J2405; J2704

== ENCOUNTER → 2018-05-14 | Day surgery (SDC) | payer MEDICARE, OTHER ==
[~2018-05-14] MED LIST changes: +DESFLURANE 240 ML BTL INH ONE; -FENTANYL CITRATE/PF 100MCG/2 ML INJ ONE; -IOPAMIDOL 610MG/1ML 300 MG/ML VIAL IV ONE; -MIDAZOLAM HCL 2 MG/2 ML VIAL ONE; -ONDANSETRON HCL INJ 2 MG/ML VIAL ONE; -SEVOFLURANE INHAL SOLN 250 ML PEN BTL ONE; +SODIUM CHLORIDE 0.9% 1000ML 1,000 ML ONE
--- OUTSIDE RECORDS SUMMARY | 2018-05-14 08:10 | XMS REPORT | Clinical Summary ---
Author Author Jorge L Druze Organization [employer] Address Unknown Phone Unavailable Care Team Providers Care Hand Cutter Apprentice Name Role Phone Paulino Mills DO PCP [...] Rowe MD Calculus of kidney; Calculus of ureter; Urinary bladder stone 05/08/2018 Hospital Radiology Encounter Kel Rowe MD Calculus of kidney; Calculus [...] 12/22/2017 Orders Only General Internal Medicine after 05/13/2017 Family History Medical History Relation Name Comments [...] Lot Implanted Type Area Manufactur er 10/17/2020 [id number] / / [id number] [facility]: N/A COOK 6fr X 28cm - [id number] Stents UROLOGICAL Implanted: Qty: 1 on 12/25/2017 by Kel Rowe MD Procedures Comments Procedure Name Priority Date/Time Associated Diagnosis XR ABDOMEN 1 VW Routine 05/08/2018 Calculus of kidney 3:06 PM FRACTIONATION SUPERVISOR Calculus of ureter Urinary bladder stone XR ABDOMEN 1 VW Routine 04/10/2018 Calculus of kidney 9:22 AM FRACTIONATION SUPERVISOR Calculus of ureter XR ABDOMEN 1 VW Routine 03/27/2018 Hematuria syndrome 2:12 PM FRACTIONATION SUPERVISOR Calculus of kidney Calculus of ureter ESTIMATED GFR Routine 02/28/2018 9:42 AM FRACTIONATION SUPERVISOR POC CREATININE Routine 02/28/2018 9:[address] ABDOMEN PELVIS WO Routine 02/28/2018 Hematuria syndrome CONTRAST 9:13 AM FRACTIONATION SUPERVISOR Uric acid nephrolithiasis XR CHEST 2 VW [...] MMODE SPECTRAL 9:15 AM CDT COLOR DOPPLER ([id number]) POC GLUCOSE Routine 12/28/2017 5:46 AM CDT [...] GLUCOSE Routine 12/22/2017 2:27 PM CDT after 05/13/2017 Results * XR Abdomen 1 Vw (05/08/2018 3:06 PM FRACTIONATION SUPERVISOR) Only the most recent of 3 results within the time period is included. Narrative Performed At EXAMINATION:[facility]: 72 years 1945 N20.0 Calculus of kidney, N20.1 Calculus of ureter COMPARISON:04/10/2018 IMPRESSION: 1.Evaluation for stones is limited by bowel gas and feces. No definite stone identified. CT can be obtained for further evaluation as indicated. Previous ureteral stent has been removed. There is a stable phlebolith over the left pelvis. 2.The bowel gas pattern is nonobstructive. Cholecystectomy clips. No plain film evidence of free air. 3.Degenerative changes in the spine. [id number] Procedure Note Interface, Radiology Results Incoming - 05/08/2018 4:30 PM FRACTIONATION SUPERVISOR EXAMINATION: XR ABDOMEN 1 VW CLINICAL HISTORY: 72 years 1945 N20.0 Calculus of kidney, N20.1 Calculus of ureter COMPARISON: 04/10/2018 IMPRESSION: 1. Evaluation for stones is limited by bowel gas and feces. No definite stone identified. CT can be obtained for further evaluation as indicated. Previous ureteral stent has been removed. There is a stable phlebolith over the left pelvis. 2. The bowel gas pattern is nonobstructive. Cholecystectomy clips. No plain film evidence of free air. 3. Degenerative changes in the spine. [id number] Performing Organization Address City/State/Zipcode Phone Number [facility] [address] [place] [address] * Estimated GFR (02/28/2018 9:42 AM FRACTIONATION SUPERVISOR) Estimated GFR 27 (A) mL/min/1.73 m2 [facility] Comment: PATHOLOGY AND [employer] GENOMIC MEDICINE rpretation G1 >=90 Normal or high G2 60-89Mildly decreased Y8g50-15 Mildly to moderately decreased V6c44-99 Moderately to severely decreased G4 15-29Severely decreased G5 <15Kidney failure The eGFR was calculated using the Chronic Kidney Disease Epidemiology Collaboration (CKD-EPI) equation. Interpretation is based on recommendations of the National Kidney Foundation-Kidney Disease Outcomes Quality Initiative (NKF-KDOQI) published in 2014. Specimen Blood Performing Organization Address City/State/Zipcode Phone Number [facility] OF [address] [place] [address] PATHOLOGY AND GENOMIC MEDICINE * POC creatinine (02/28/2018 9:42 AM FRACTIONATION SUPERVISOR) POC creatinine 2.3 (H) 0.7 - 1.2 mg/dl [facility] Comment: PATHOLOGY AND Meter ID: [id number] [employer] MEDICINE Registered Nurse Cardiovascular Icu: Adelaida Zamorano Specimen Blood Performing Organization Address City/State/Zipcode Phone Number [facility] OF [address] [place] [address] PATHOLOGY AND GENOMIC MEDICINE * CT Abdomen Pelvis Wo Contrast (02/28/2018 9:13 AM FRACTIONATION SUPERVISOR) Only the most recent of 2 results [...] the largest in the 7 mm range [id number] Procedure Note Hm Interface, Radiology Results Incoming - 02/28/2018 9:28 AM FRACTIONATION SUPERVISOR EXAMINATION: CT ABDOMEN PELVIS WO CONTRAST CLINICAL [...] the largest in the [id number] Performing Organization Address [facility] Phone Number [facility] [address] [place] [address] * XR Chest 2 Vw (02/20/2018 11:01 AM CDT) Narrative Performed At EXAMINATION:XR CHEST 2 VW RADIANT CLINICAL HISTORY:J20.9 Acute bronchitisunspecified, j20.9 COMPARISON:12/27/2017 IMPRESSION: Lungs are clear without infiltrate, pleural effusion or pneumothorax. Cardiomediastinal silhouette is enlarged, unchanged. Calcified thoracic aortic atherosclerotic changes. Osseous degenerative changes. [id number] Procedure Note Hm Interface, Radiology Results Incoming - 02/20/2018 11:08 AM CDT EXAMINATION: XR CHEST 2 VW CLINICAL HISTORY: J20.9 Acute bronchitis unspecified, j20.9 COMPARISON: 12/27/2017 IMPRESSION: Lungs are clear without infiltrate, pleural effusion or pneumothorax. Cardiomediastinal silhouette is enlarged, unchanged. Calcified thoracic aortic atherosclerotic changes. Osseous degenerative changes. [id number] Performing Organization Address [facility] Phone Number [facility] [address] [place] [address] * POC glucose (12/30/2017 4:00 PM CDT) Only the most recent of 44 results within the time period is included. POC glucose 216 (H) 65 - 100 mg/dL [facility] Comment: PATHOLOGY AND Meter ID: [id number] GENOMIC MEDICINE Registered Nurse Cardiovascular Icu: Tony Green Performing Organization Address City/[facility]/Zipcode Phone Number [facility] OF [address] [place] [address] PATHOLOGY AND GENOMIC MEDICINE * ECG 12 lead (12/30/2017 9:46 AM CDT) Only the most recent of 3 results within the time period is included. Ventricular rate 87 [facility] MUSE Atrial rate 87 [facility] M[facility] ME interval 130 [facility] MUSE QRSD interval 98 [...] has increased BY32 BPM- Performing Organization Address City/[facility] Phone Number [facility] M[facility] [address] [place] [address] * Estimated GFR (12/30/2017 6:28 AM CDT) Only the most recent of 7 results within the time period is included. GFR Non Af Amer 23 (A) mL/min/1.73 m2 [facility] PATHOLOGY AND GENOMIC MEDICINE GFR Af Amer 28 (A) mL/min/1.73 m2 [facility] Comment: PATHOLOGY AND Chronic kidney [...] Americans. Specimen Plasma specimen Performing Organization Address City/[facility]/Zipcode Phone Number [facility] OF [address] [place] [address] PATHOLOGY AND GENOMIC MEDICINE * CBC with platelet and differential (12/30/2017 6:28 AM CDT) Only the most recent of 5 results within the time period is included. WBC 7.1 4.2 - 11.0 k/uL [facility] PATHOLOGY AND GENOMIC MEDICINE RBC 4.05 4.04 - 5.86 m/uL [facility] PATHOLOGY AND GENOMIC MEDICINE HGB 11.3 (L) 13.0 - 17.3 g/dL [facility] PATHOLOGY AND GENOMIC MEDICINE HCT 36.8 34.0 - 45.0 % [facility] PATHOLOGY AND GENOMIC MEDICINE MCV 90.9 80.0 - 98.0 fL [facility] PATHOLOGY AND GENOMIC MEDICINE MCH 27.9 27.0 - 34.0 pg [facility] PATHOLOGY AND GENOMIC MEDICINE MCHC 30.7 (L) 31.5 - 36.5 g/dL [facility] PATHOLOGY AND GENOMIC MEDICINE RDW - SD 45.9 37.0 - 51.0 fL [facility] PATHOLOGY AND GENOMIC MEDICINE MPV 10.5 (H) 7.4 - 10.4 fL [facility] PATHOLOGY AND GENOMIC MEDICINE Platelet count 180 150 - 400 k/uL [facility] PATHOLOGY AND GENOMIC MEDICINE Nucleated RBC 0.00 /100 WBC [facility] PATHOLOGY AND GENOMIC MEDICINE Neutrophils 57.5 36.0 - 66.0 % [facility] PATHOLOGY AND GENOMIC MEDICINE Lymphocytes 23.3 (L) 24.0 - 44.0 % [facility] PATHOLOGY AND GENOMIC MEDICINE Monocytes 12.2 (H) 0.0 - 6.0 % [facility] OF PATHOLOGY AND GENOMIC MEDICINE Eosinophils 5.6 0.0 - 6.0 % [facility] OF PATHOLOGY AND GENOMIC MEDICINE Basophils 0.4 0.0 - 1.2 % [facility] OF PATHOLOGY AND GENOMIC MEDICINE Immature granulocytes 1.0 0.0 - 1.0 % [facility] PATHOLOGY AND GENOMIC MEDICINE Specimen Blood Performing Organization Address City/State/Zipcode Phone Number [place] [phone] [place] [address] PATHOLOGY AND [employer] [facility] * Comprehensive metabolic panel (12/30/2017 6:28 AM CDT) Only the most recent of 5 results within the time period is included. Sodium 143 135 - 150 mEq/L [facility] PATHOLOGY AND GENOMIC MEDICINE Potassium 4.6 3.5 - 5.0 mEq/L [facility] PATHOLOGY AND GENOMIC MEDICINE Chloride 101 98 - 112 mEq/L [facility] OF PATHOLOGY AND GENOMIC MEDICINE CO2 33 (H) 24 - 31 mmol/L [facility] PATHOLOGY AND GENOMIC MEDICINE Anion gap 9@ANIO 7 - 15 mEq/L [facility] PATHOLOGY AND GENOMIC MEDICINE BUN 36 (H) 7 - 18 mg/dL [facility] PATHOLOGY AND GENOMIC MEDICINE Creatinine 2.70 (H) 0.70 - 1.20 mg/dL [facility] PATHOLOGY AND GENOMIC MEDICINE Glucose 185 (H) 65 - 100 mg/dL [facility] PATHOLOGY AND GENOMIC MEDICINE Calcium 9.3 8.8 - 10.2 mg/dL [facility] PATHOLOGY AND GENOMIC MEDICINE Protein 6.6 6.3 - 8.3 g/dL [facility] PATHOLOGY AND GENOMIC MEDICINE Albumin 3.4 (L) 3.5 - 5.0 g/dL [facility] PATHOLOGY AND GENOMIC MEDICINE A/G ratio 1.1 0.7 - 3.8 [facility] PATHOLOGY AND GENOMIC MEDICINE Alkaline phosphatase 58 0 - 129 U/L [facility] OF PATHOLOGY AND GENOMIC MEDICINE AST 23 10 - 50 U/L [facility] PATHOLOGY AND GENOMIC MEDICINE ALT 29 5 - 50 U/L [facility] OF PATHOLOGY AND GENOMIC MEDICINE Total bilirubin 0.5 0.2 - 1.2 mg/dL [facility] PATHOLOGY AND GENOMIC MEDICINE Specimen Plasma specimen Performing Organization Address City/State/Zipcode Phone Number [facility] [address] [place] [address] PATHOLOGY AND GENOMIC MEDICINE * Echocardiogram complete [...] MV valve area p 1/2 3.07 cm2 [facility] method PV Pk Grad 3.83 mmHg [...] Performing Organization Address City/State/Zipcode Phone Number [facility] [address] [place] [address] * Troponin (12/28/2017 4:52 AM CDT) Only the most recent of 4 results within the time period is included. Troponin <0.30 0.00 - 0.30 ng/mL [facility] Comment: PATHOLOGY AND 0.11 - 1.49 GENOMIC MEDICINE ng/mlMay indicate increased risk of acute coronary syndrome. >=1.5 ng/ml Consistent with acute myocardial infarction. The diagnostic value of a single normal or non-diagnostic result is questionable.Serial samples at 2-6 hour intervals are required to rule out acute myocardial injury. Specimen Plasma specimen Performing Organization Address [facility] Cent[facility]ode Phone Number [facility] OF [address] [place] [address] PATHOLOGY AND GENOMIC MEDICINE * Thyroid stimulating hormone (12/28/2017 4:52 AM CDT) TSH 1.96 0.27 - 4.20 uIU/mL [facility] PATHOLOGY AND GENOMIC MEDICINE Specimen Plasma specimen Performing Organization Address [facility] [place] [address] PATHOLOGY AND GENOMIC MEDICINE * NM Lung Ventilation Perfusion (12/27/2017 4:55 PM CDT) Narrative Performed At [facility] H[facility] RADIANT TECHNIQUE: The patient breathed 15-20 mCi of xenon-133 gas through a closed ventilation system while dynamic imaging of the lungs was performed in the posterior and anterior projections. The patient was then injected with 5 mCi of [id number] intravenously, followed by imaging of the lungs in anterior, posterior, and oblique projections. FINDINGS: Nonsegmental, though large, perfusion defect left upper lobe near the hilum and aortic arch. Minimal air trapping in the left lung on ventilation. IMPRESSION: Low Probability for pulmonary embolism. [id number] Procedure Note Interface, Radiology Results Incoming - 12/27/2017 5:01 PM CDT CLINICAL HISTORY: [facility] contrast allergy TECHNIQUE: The patient breathed 15-20 mCi of xenon-133 gas through a closed ventilation system while dynamic imaging of the lungs was performed in the posterior and anterior projections. The patient was then injected with 5 mCi of [id number] intravenously, followed by imaging of the lungs in anterior, posterior, and oblique projections. FINDINGS: Nonsegmental, though large, perfusion defect left upper lobe near the hilum and aortic arch. Minimal air trapping in the left lung on ventilation. IMPRESSION: Low Probability for pulmonary embolism. [id number] Performing Organization Address [facility] Phone Number [facility] [address] [place] [address] * Urinalysis screen and microscopy, with reflex to culture (12/27/2017 1:15 PM CDT) Only the most recent of 2 results within the time period is included. Specimen site Clean catch [facility] PATHOLOGY AND GENOMIC MEDICINE Color, UA Yellow [facility] PATHOLOGY AND GENOMIC MEDICINE Appearance, UA Clear [facility] PATHOLOGY AND GENOMIC MEDICINE Specific gravity, UA 1.015 1.001 - 1.035 [facility] OF PATHOLOGY AND GENOMIC MEDICINE pH, UA 6.0 5.0 - 8.5 [facility] PATHOLOGY AND GENOMIC MEDICINE Protein, UA 2+ (A) Negative [facility] PATHOLOGY AND GENOMIC MEDICINE Glucose, UA 2+ (A) Negative [facility] PATHOLOGY AND GENOMIC MEDICINE Ketones, UA Negative Negative [facility] OF PATHOLOGY AND GENOMIC MEDICINE Bilirubin, UA Negative Negative [facility] OF PATHOLOGY AND GENOMIC MEDICINE Blood, UA Large (A) Negative [facility] PATHOLOGY AND GENOMIC MEDICINE Nitrite, UA Negative Negative [facility] OF PATHOLOGY AND GENOMIC MEDICINE Urobilinogen, UA Negative <2.0 [facility] OF PATHOLOGY AND GENOMIC MEDICINE Leukocyte esterase, UA Moderate (A) Negative [facility] OF PATHOLOGY AND GENOMIC MEDICINE WBC, UA 102 (H) 0 - 1 /HPF [facility] PATHOLOGY AND GENOMIC MEDICINE RBC, UA >200 (H) 0 - 5 /HPF [facility] PATHOLOGY AND GENOMIC MEDICINE Bacteria, UA None seen None seen [facility] PATHOLOGY AND GENOMIC MEDICINE Yeast, UA None seen [facility] OF PATHOLOGY AND GENOMIC MEDICINE Yeast with pseudohyphae, None seen [facility] PATHOLOGY AND GENOMIC MEDICINE Specimen Urine Performing Organization Address City/[facility]/Zipcode Phone Number [place] [address] [place] [address] PATHOLOGY AND GENOMIC MEDICINE * Gram stain (12/27/2017 1:15 PM CDT) Gram stain result No organisms seen [facility] DEPARTMENT OF Comment: PATHOLOGY AND Specimen Information GENOMIC MEDICINE Specimen Source: Urine Specimen Site: Clean catch Specimen Urine Performing Organization Address City/[facility] Cent[facility] Phone Number [facility] DEPARTMENT OF [address] [place] [address] PATHOLOGY AND GENOMIC MEDICINE * Urine culture (12/27/2017 1:15 PM CDT) Only the most recent of 2 results within the time period is included. Urine culture isolate Gram positive frandy [facility] DEPARTMENT OF 10-1 cfu/ml PATHOLOGY AND (A) GENOMIC MEDICINE Comment: Specimen Information Specimen Source: Urine Specimen Site: Clean catch Specimen Urine Performing Organization Address [facility] Phone Number [facility] DEPARTMENT OF [address] [place] [address] PATHOLOGY AND GENOMIC MEDICINE * Prothrombin time with INR (12/27/2017 12:08 PM CDT) Prothrombin time 14.0 12.0 - 15.0 sec [facility] OF PATHOLOGY AND GENOMIC MEDICINE INR 1.07 0.92 - 1.12 [facility] OF Comment: PATHOLOGY AND For patients on anticoagulant GENOMIC MEDICINE therapy, reference ranges below: Indication: INR Value Treatment of Venous Thrombosis, 2.0-3.0 pulmonary emboli, or prophylaxis of a venous thrombosis, or systemic emboli. High dose, high risk patients 3.0-4.5 with mechanical valves. NOTE:INR values over 3.0 are sometimes associated with gastrointestinal hemorrhage, especially values over 4.0. Specimen Blood Performing Organization Address [facility] Phone Number [facility] [address] [place] [address] PATHOLOGY AND GENOMIC MEDICINE * B natriuretic peptide (12/27/2017 12:08 PM CDT) BNP 211 (H) 0 - 100 pg/mL [facility] PATHOLOGY AND GENOMIC MEDICINE Specimen Blood Performing Organization Address [facility] Centercode Phone Number [facility] [address] [place] [address] PATHOLOGY AND GENOMIC MEDICINE * ECG ED Preliminary Interpretation - NOT AN ORDER (12/27/2017 11:53 AM CDT) Narrative Performed At Virginie Alcantara MD 12/27/2017 11:53 AM ECG ED Preliminary Interpretation - Not an Order Performed by: VIRGINIE ALCANTARA Authorized by: VIRGINIE ALCANTARA ECG reviewed by ED Physician in the absence of a tile classifier: yes Previous ECG: Previous ECG:Compared to current Interpretation: Interpretation: normal Rate: ECG rate:55 ECG rate assessment: bradycardic Rhythm: Rhythm: sinus rhythm and sinus bradycardia Ectopy: Ectopy: none QRS: QRS axis:Normal Conduction: Conduction: normal ST segments: ST segments:Normal T waves: T waves: normal * XR Chest 1 Vw Portable (12/27/2017 11:47 AM CDT) Narrative Performed At EXAMINATION:XR CHEST 1 VW PORTABLE [facility] CLINICAL HISTORY:Chest Pain COMPARISON:March 20, 2016 chest IMPRESSION: No acute abnormality. No change compared to previous Hypoinflation of the lungs unchanged. Mild interstitial scarring as before. No infiltrate congestion or effusion. No pneumothorax Cardiomediastinal silhouette normal size. Mild vascular ectasia and atherosclerosis Old rib fractures on the right. Cholecystectomy clips incidentally noted. Contrast in the colon Single view chest [id number] Procedure Note Hm Interface, Radiology Results Incoming [...] Contrast in the colon Single view chest [id number] Performing Organization Address City/State/Zipcode Phone Number [facility] [address] [place] [address] * Basic metabolic panel (12/26/2017 6:27 AM CDT) Only the most recent of 2 results within the time period is included. Sodium 143 135 - 150 mEq/L [facility] OF PATHOLOGY AND GENOMIC MEDICINE Potassium 4.4 3.5 - 5.0 mEq/L [facility] OF PATHOLOGY AND GENOMIC MEDICINE Chloride 106 98 - 112 mEq/L [facility] PATHOLOGY AND GENOMIC MEDICINE CO2 27 24 - 31 mmol/L [facility] PATHOLOGY AND GENOMIC MEDICINE Anion gap 10@ANIO 7 - 15 mEq/L [facility] OF PATHOLOGY AND GENOMIC MEDICINE BUN 34 (H) 7 - 18 mg/dL [facility] OF PATHOLOGY AND GENOMIC MEDICINE Creatinine 1.90 (H) 0.70 - 1.20 mg/dL [facility] OF PATHOLOGY AND GENOMIC MEDICINE Glucose 108 (H) 65 - 100 mg/dL [facility] OF PATHOLOGY AND GENOMIC MEDICINE Calcium 8.7 (L) 8.8 - 10.2 mg/dL [facility] OF PATHOLOGY AND GENOMIC MEDICINE Specimen Plasma specimen Performing Organization Address City/State/Zipcode Phone Number [facility] [address] [place] [address] PATHOLOGY AND GENOMIC MEDICINE * [place] Pyelogram [...] infundibular calyceal complex. Left UP junction narrowing. [id number] Procedure Note Interface, Radiology Results Incoming - 12/25/2017 4:55 [...] infundibular calyceal complex. Left UP junction narrowing. [id number] Performing Organization Address [facility] Phone Number [facility] [address] [place] [address] * Phosphorus level (12/25/2017 5:42 AM CDT) Phosphorus 3.2 2.4 - 4.5 mg/dL [facility] OF PATHOLOGY AND [employer] MEDICINE Specimen Plasma specimen Performing Organization Address [facility] [place] [address] PATHOLOGY AND [employer] MEDICINE * Magnesium level (12/25/2017 5:42 AM CDT) Magnesium 2.30 1.60 - 2.40 mg/dL [facility] OF PATHOLOGY AND GENOMIC MEDICINE Specimen Plasma specimen Performing Organization Address [facility] [place] [address] PATHOLOGY AND [employer] MEDICINE * Prostate specific antigen (12/24/2017 12:26 PM CDT) PSA 3.2 0.0 - 4.0 ng/mL [facility] DEPARTMENT OF Comment: PATHOLOGY AND The MARGOT 8000 PSA immunoassay [facility] was used. Results obtained with different assay methods or kits should not be used interchangeably and may be different. Specimen Plasma specimen Performing Organization Address [facility] Centercode Phone Number [facility] DEPARTMENT OF [address] [place] [address] PATHOLOGY AND GENOMIC MEDICINE * US Renal (12/23/2017 9:28 AM CDT) Narrative Performed At [facility], [facility] history: Renal function Comparison: CT [...] known chronic ureteropelvic junction obstruction. Procedure Note [facility], Radiology Results Incoming - 12/23/2017 9:48 AM [...] obstruction. Performing Organization Address City/State/Zipcode Phone Number [facility] [address] [place] [address] after 05/13/2017 Insurance Payer Benefit Subscriber ID Type Phone Address Plan / Group MEDICARE MEDICARE xxxxxxxxxxx [place] A [place] B AETNA AETNA xxxxxxxxxx HMO HMO,POS,EP O, MC/EC Advance Directives Patient has advance care planning documents on file. For more information, clair saxena contact: Jorge L David [phone] [place] [address]
--- OUTSIDE RECORDS SUMMARY | 2018-05-14 08:10 | XMS REPORT ---
Author Author [facility] Address Unknown Phone Unavailable Care Team Providers Care Repair Miller Name Role Phone Zamzam LOO Unavailable Unavailable Problems This patient has no known problems. Allergies, Adverse Reactions, Alerts This patient has no known allergies or adverse reactions. Medications This patient has no known medications. Results Test Description Test Time Test Comments Text Results Atomic Results Result Comments CHEST 2 VIEWS 2018-04-23 09:59:00 [place] [address] Patient Name: MARTÍN FLORES MR #: [id number] : 1945 Age/Sex: 72/M Req #: [id number] [facility] Physician: Ordered by: ANASTASIA LOO MD Report #: [id number] Location: OR Room/Bed: Procedure: [id number] DX/CHEST 2 VIEWS Exam Date: Exam Time: REPORT STATUS: Signed EXAMINATION: CHEST 2 VIEWS INDICATION: Pre-op COMPARISON: None FINDINGS: TUBES and LINES: None. LUNGS: Moderate lung volumes. Mild patchy bibasilar opacities, likely atelectasis. There is no evidence of pneumonia or pulmonary edema. PLEURA: No pleural effusion or pneumothorax. HEART AND MEDIASTINUM: The cardiomediastinal silhouette is unremarkable. Atherosclerotic aortic calcifications. BONES AND SOFT TISSUES: No acute osseous lesion. Soft tissues are unremarkable. There are old healed bilateral rib fractures. UPPER ABDOMEN: No free air under the diaphragm. Clips and partially seen catheter are present in the upper abdomen on lateral view. IMPRESSION: No acute radiographic abnormality. Signed by: Dr. Stefanie Larose MD on 04/23/2018 10:02 AM Dictated By: STEFANIE LAROSE MD 1002 Transcribed By: RAMU on 04/23/18 1002 COPY TO: ANASTASIA LOO MD
[2018-05-14 12:49] VITALS: BP 127/76
--- NOTE | 2018-05-14 12:49 | Operative Report ---
DATE OF PROCEDURE: May 14, 2018 PREOPERATIVE DIAGNOSIS: Left mid renal caliceal calculus 8 x 8 mm. POSTOPERATIVE DIAGNOSIS: Left mid renal caliceal calculus 8 x 8 mm. OPERATION: Left renal extracorporeal shockwave lithotripsy. CADMIUM BURNER: Dr. Keys. ANESTHETIC: General. Mr. King is a 72-year-old male who presented with a chief complaint of acute onset of pain on the left side. Workup showed that he had a 12 x 12 mm calculus. He underwent left renal ESWL. Postoperatively he had an 8 x 8 calculus in the left mid tiffanie. This patient was placed on the table in the supine position, and the stone was brought into position between F1 and F2 of the fluoroscopic monitor. The lithotripsy was then started, starting at 2 kV and slowly and gradually increased to 7 kV. Observation of the stone pulverization was done at 250 shocks intermittently. At 3000 shocks, it was felt that the stone has completely pulverized. Patient tolerated the procedure well and was taken to the recovery room in satisfactory condition. Job#: [id number]
== END | disposition home or self-care (01) ==
LOC: OR 08:07
PROVIDERS: ATTEND Specialist
DX: N20.0 Calculus of kidney (principal); H91.90 Unspecified hearing loss, unspecified ear; G47.33 Obstructive sleep apnea (adult) (pediatric); I10 Essential (primary) hypertension; I25.2 Old myocardial infarction; I49.3 Ventricular premature depolarization; E11.9 Type 2 diabetes mellitus without complications; K21.9 Gastro-esophageal reflux disease without esophagitis; Z91.041 Radiographic dye allergy status; Z79.82 Long term (current) use of aspirin; Z79.4 Long term (current) use of insulin
CPT/HCPCS: 36415; 50590; 82948; J1100; J1956; J2001; J2704; J7030

== ENCOUNTER → 2018-10-01 | Day surgery (SDC) | payer MEDICARE, OTHER ==
[2018-09-25 12:58] LABS: BASOPHILS # (AUTO) 0.1 (0.0-0.1); BASOPHILS % 0.9 % (0.0-1.0); EOSINOPHILS # (AUTO) 1.1 (0.0-0.4); EOSINOPHILS % 12.3 % (0.0-6.0); HEMATOCRIT 41.8 % (38.2-49.6); HEMOGLOBIN 13.9 g/dL (14.0-18.0); LYMPHOCYTES # (AUTO) 2.3 (1.0-3.2); LYMPHOCYTES % 24.8 % (18.0-39.1); MEAN CORPUSCULAR HEMOGLOBIN 28.2 pg (28-32); MEAN CORPUSCULAR HGB CONC 33.3 g/dL (31-35); MEAN CORPUSCULAR VOLUME 84.8 fL (81-99); MONOCYTES # (AUTO) 0.9 (0.2-0.8); MONOCYTES % 9.4 % (4.4-11.3); NEUTROPHILS # (AUTO) 4.9 (2.1-6.9); NEUTROPHILS % 52.1 % (38.7-80.0); PLATELET COUNT 296 x10e3/uL (140-360); RED BLOOD COUNT 4.93 x10e6/uL (4.3-5.7); RED CELL DISTRIBUTION WIDTH 14.1 % (11.7-14.4)
[2018-09-25 13:05] LABS: INR 0.93
[2018-09-25 13:13] LABS: ANION GAP 15.1 mmol/L (8-16); CALCIUM 9.8 mg/dL (8.4-10.2); CREATININE, SERUM 2.19 mg/dL (0.72-1.25); POTASSIUM 4.1 mmol/L (3.5-5.1)
[~2018-10-01] MED LIST changes: -DESFLURANE 240 ML BTL INH ONE; -DEXAMETHASONE SOD PHOS INJ 4 MG/ML VIAL ONE; +FENTANYL CITRATE/PF 100MCG/2 ML INJ ONE; +HYDROMORPHONE 2MG/ML 2 MG/ML ML ONE; +JANUVIA100 MG PO; +ONDANSETRON HCL INJ 2MG/ML 2ML 2 MG/ML VIAL ONE; +PANTOPRAZOLE SO40 MG PO; +SEVOFLURANE INHAL SOLN 250 ML PEN BTL ONE; -SODIUM CHLORIDE 0.9% 1000ML 1,000 ML ONE; +TRAMADOL HCL100 MG; +TRESIBA; +TRULICITY
--- OUTSIDE RECORDS SUMMARY | 2018-10-01 08:33 | XMS REPORT | Clinical Summary ---
Author Author [facility] L [facility] Organization [facility] Address Unknown Phone Unavailable Care Team Providers Care Filler Picker Name Role Phone Paulino Mills DO PCP Unavailable Allergies Comments Active Allergy Reactions Severity Noted Date Patient states, "It just made me feel funny." Iodine 06/04/2016 Medications End Date Status Medication Sig Dispensed Refills Start Date Active pantoprazole (PROTONIX) Take 40 mg by 2 40 MG EC tablet mouth once 7 daily. Active LYRICA 50 mg capsule Take 50 [...] needed for anxiety (related to virtigo). Active tamsulosin (FLOMAX) 0.4 Take 0.4 mg 1 mg capsule,extended by mouth once 6 release 24hr daily. Active NOVOLOG FLEXPEN 100 INJECT SUB- Q 1 unit/mL insulin pen 24 UNITS 15 6 MINUTES BEFORE EACH MEAL THREE TIMES A DAY Active fexofenadine (GURINDER) Take 180 mg 0 180 MG tablet by mouth daily as needed. Active aspirin (ECOTRIN) 81 MG Take 81 mg by 0 enteric coated tablet mouth daily. Active furosemide (LASIX) 40 mg Take 40 mg by 1 tablet mouth daily. 9 Active JANUVIA 25 mg tablet Take 25 mg by 0 mouth daily. 9 Active amLODIPine (NORVASC) 10 0 mg tablet 9 Active traMADol (ULTRAM) 50 mg Take 50 mg by 0 tablet mouth 3 9 (three) times a day as needed. Active atorvastatin (LIPITOR) 40 Take 40 mg by 1 MG tablet mouth 2 (two) 9 times a day. Active fluticasone propionate INHALE 2 1 (FLONASE) 50 SPRAYS IN 9 mcg/actuation nasal spray EACH NOSTRIL NEEDED Active TRULICITY 1.5 mg/0.5 mL 0 pen injector 9 Active TRESIBA FLEXTOUCH U-200 0 200 unit/mL (3 mL) 9 insulin pen Active promethazine (PHENERGAN) Take 12.5 mg 2 12.5 MG tablet by mouth 8 every 8 (eight) hours as needed. for nausea Active tiZANidine (ZANAFLEX) 4 Take 4 mg by 0 MG tablet mouth 3 9 (three) times a day as needed. Active acetaminophen-codeine Take 1 tablet 0 (TYLENOL WITH CODEINE #3) by mouth 9 300-30 mg per tablet every 6 (six) hours as needed. Active bisoprolol-hydrochlorothi Take 1 tablet 0 azide (ZIAC) 10-6.25 mg by mouth per tablet daily. 07/23/2018 Discontinued gabapentin (NEURONTIN) Take 600 mg 0 600 mg tablet by mouth 3 7 (three) times a day. 12/26/2017 Discontinued ciprofloxacin (CIPRO) 500 Take 500 mg 0 MG tablet by mouth 7 every 12 (twelve) hours. 12/28/2017 Discontinued acyclovir (ZOVIRAX) 800 TAKE 1 TABLET 0 MG tablet BY MOUTH 5 X 7 DAILY FOR 10 DAYS (4 HOURS APART ). 07/23/2018 Discontinued HYDROcodone-acetaminophen Take 1 tablet 0 (NORCO) 7.5-325 mg per by mouth 6 tablet every 4 (four) hours. 07/23/2018 Discontinued traMADol-acetaminophen Take 1 tablet 0 (ULTRACET) 37.5-325 mg by mouth 3 7 per tablet (three) times a day as needed. 12/22/2017 Discontinued amlodipine-benazepril TAKE 1 1 (LOTREL) 10-20 mg per CAPSULE(S) BY 6 capsule MOUTH DAILY 12/25/2017 Discontinued fluticasone (FLONASE) 50 USE 2 SPRAYS 1 mcg/actuation nasal spray IN EACH 6 NOSTRIL NEEDED 09/08/2018 Discontinued BD ULTRA-FINE SLIME PEN USE 3 NEEDLES 32 gauge x 5/32" DIRECTED WITH 6 needle INSULIN INJECTION 4 TIMES A DAY. 12/25/2017 Discontinued promethazine (PHENERGAN) TAKE 1 TABLET 5 25 MG tablet BY MOUTH 6 TWICE A DAY NEEDED NAUSEA 12/25/2017 Discontinued DECONEX DMX 10-15-380 mg TAKE 1 TABLET 0 tablet BY MOUTH 7 EVERY 6 TO 8 HOURS NEEDED COUGH/CONGEST ION 09/08/2018 Discontinued ONETOUCH VERIO strip test TEST BLOOD 3 strips GLUCOSE 4 6 TIMES PER DAY 07/23/2018 Discontinued LANTUS SOLOSTAR 100 INJECT 48 1 unit/mL injection (pen) UNITS IN THE 6 MORNING, 40 UNITS AT NIGHT WITH TITRATION, TOTAL DAILY DOSE UP TO 90 UNITS 07/23/2018 Discontinued glimepiride (AMARYL) 4 MG Take 4 mg by 0 tablet mouth as needed. 07/23/2018 Discontinued atorvastatin (LIPITOR) 80 Take 80 mg by 0 MG tablet mouth daily. 12/25/2017 Discontinued bisoprolol-hydrochlorothi Take 1 tablet 4 azide (ZIAC) 5-6.25 mg by mouth once 7 per tablet daily. 09/08/2018 Discontinued ONETOUCH DELICA LANCETS 0 30 gauge misc 7 09/01/2018 Discontinued meclizine (ANTIVERT) 25 Take 25 mg by 0 mg tablet mouth every 8 7 (eight) hours as needed for dizziness. 12/26/2017 Discontinued traMADol (ULTRAM) 50 mg Take [...] 8 by mouth daily for 30 days. 09/01/2018 Discontinued bisoprolol-hydrochlorothi Take 1 tablet 1 azide (ZIAC) 10-6.25 mg by mouth 9 per tablet daily. 09/01/2018 Discontinued nortriptyline (PAMELOR) Take 25 mg by 0 25 MG capsule mouth daily. 9 07/23/2018 polyethylene glycol Take 4,000 mL 4000 mL 0 (COLYTE WITH FLAVOR by mouth once 9 PACKS) 240-22.72-6.72 for 1 dose. -5.84 gram solution Active Problems Problem Noted Date Chest pain 09/01/2018 Blood in stool 07/23/2018 Overview: Added automatically from request for surgery Anemia 07/23/2018 Overview: Added automatically from request for surgery Dyspnea 12/27/2017 REINALDO inhibitor-aggravated angioedema 12/23/2017 Acute renal failure superimposed on stage 3 chronic kidney disease 12/23/2017 Allergic reaction to food 12/22/2017 Left lower quadrant pain 06/04/2016 Epigastric pain 06/04/2016 Bloating 06/04/2016 Hx of colonic polyps 06/04/2016 Herpes zoster without complication 06/04/2016 Diverticulosis of large intestine without hemorrhage 06/04/2016 Encounters Care Team Description Date Type Specialty Kel Rowe MD Calculus of ureter (Primary Dx) 09/22/2018 Transcribe Access Orders Kel Rowe MD CYSTO RETROGRADE-Bilataral 09/09/2018 Surgery General Surgery Yue Lee MD 09/09/2018 Anesthesia General Surgery Event Kel Rowe MD 09/09/2018 Hospital General Surgery Encounter Kel Rowe MD Stricture or kinking of ureter; Kidney stone; Kidney lesion 09/08/2018 Hospital Radiology Encounter Kel Rowe MD Preop testing (Primary Dx) 09/08/2018 Pre-Admit Pre-Admission Testing Testing Appointment Tom Alarcon MD 09/08/2018 Transcribe Access Orders Kel Rowe MD Stricture or kinking of ureter (Primary Dx); Kidney stone; Kidney lesion 09/04/2018 Transcribe Access Orders Rishi Ruth MD 09/01/2018 Ancillary Cardiothoracic Surgery Procedure Rishi Ruth MD CV LEFT HEART CATH LV GRAM WITH CORS [[id number] (CPT)] 09/01/2018 Surgery Procedural Cardiology Rishi Ruth MD Abnormal stress test 09/01/2018 [facility] General Internal Medicine Encounter Elvia Crawford MD Blood in stool (Primary Dx); Anemia, unspecified type; Chronic kidney disease, unspecified CKD stage; Stage 3 chronic kidney disease (HCC) 07/23/2018 Office Visit Gastroenterology Christina Acosta MA EGD/COLONOSCOPY INSTRUCTIONS; EGD/COLON CANCELLATION (PT CANCELLED ) 07/23/2018 Documentation Gastroenterology Christina Acosta MA Blood in stool (Primary Dx); Anemia, unspecified type 07/23/2018 Prep for Gastroenterology Surgery Kel Rowe MD Calculus of ureter 05/29/2018 Hospital Radiology Encounter Kel Rowe MD Calculus [...] 12/22/2017 Orders Only General Internal Medicine after 09/30/2017 Family History Medical History Relation Name Comments [...] Vital Signs Time Taken Vital Sign Reading 09/09/2018 10:51 AM CDT Blood Pressure 129/85 09/09/2018 10:51 AM CDT Pulse 81 09/09/2018 9:59 AM CDT Temperature 36.2 C (97.1 F) 09/09/2018 10:51 AM CDT Respiratory Rate 17 09/09/2018 10:51 AM CDT Oxygen Saturation 97% - Inhaled Oxygen - Concentration 09/09/2018 7:03 AM CDT Weight 115 kg (253 lb 6.4 oz) 09/09/2018 7:03 AM CDT Height 175.3 cm (5' 9") 09/09/2018 7:03 AM CDT Body Mass Index 37.42 Plan of Treatment Health Maintenance Due Date Last Done Comments COLONOSCOPY SCREENING 1994 SHINGLES VACCINES (#1) 1994 65+ PNEUMOCOCCAL VACCINE 2009 (1 of 2 - PCV13) INFLUENZA VACCINE 11/20/2018 Implants Device Identifier Shelf Expiration Date Model / Serial / Lot Implanted Type Area Manufactur er 06/19/2020 [id number] / / [id number] Device Vasclr Clsr Baln Cath 10ml Cardiovasc N/A: N/A CARDINAL Lkng Syr 6fr 7fr [facility] [id number] Implants Implanted: 09/01/2018 (Quantity not on file) 10/17/2020 [id number] / / [id number] Stent Set Ureteral [facility] Surgical N/A: N/A COOK 6fr X 28cm - [id number] Stents UROLOGICAL Implanted: Qty: 1 on 12/25/2017 by Kel Rowe MD 01/08/2021 [id number] / / [id number] Stent Uretl Polrs Ult 2drmtr 6fr Urological Left: Ureter, BSC 28cm Hydroplus W/O Gw - [id number] Implants Alutiiq UROLOGY Implanted: Qty: 1 on 09/09/2018 by or Kel Dwyer MD Procedures Comments Procedure Name Priority Date/Time Associated Diagnosis XR ABDOMEN 1 VW Routine 09/22/2018 Calculus of ureter 10:21 AM CDT POC GLUCOSE Routine 09/09/2018 9:41 AM CDT FL PYELOGRAM RETROGRADE Routine 09/09/2018 9:27 AM CDT IN AN ELECTIVE Routine 09/09/2018 SUPRAGLOTTIC AIRWAY 9:08 AM CDT Procedure Note - Sherley Mae CRNA - 09/09/2018 9:08 AM CDT Airway Date/Time: 09/09/2018 8:56 AM Performed by: Sherley Mae CRNA Authorized by: Eliza Ricardo MD Location: OR Urgency: Elective Difficult Airway: No Resident/C RNA/AA: Sherley Mae CRNA Preoxygena cecilia with 100% O2: Yes C-spine Precaution s Maintained Throughout : Yes Mask Ventilatio n: Not attempted Final Airway Type: Supraglott ic airway Final LMA: Unique LMA Size: 4 Number of Attempts at Approach: 1 POC GLUCOSE Routine 09/09/2018 7:28 AM CDT US RENAL Routine 09/08/2018 Stricture or kinking of 5:54 PM CDT ureter Kidney stone Kidney lesion ESTIMATED GFR Routine 09/08/2018 3:46 PM CDT HEMOGLOBIN A1C Routine 09/08/2018 Preop testing 3:46 PM CDT PROTHROMBIN TIME WITH INR Routine 09/08/2018 Preop testing 3:46 PM CDT PARTIAL THROMBOPLASTIN Routine 09/08/2018 Preop testing TIME (PTT) 3:46 PM CDT HC COMPLETE BLD COUNT Routine 09/08/2018 Preop testing W/AUTO DIFF 3:46 PM CDT BASIC METABOLIC PANEL Routine 09/08/2018 Preop testing 3:46 PM CDT CV FRACTIONAL FLOW Routine 09/01/2018 RESERVE 4:20 PM CDT CV LEFT HEART CATH LV Routine 09/01/2018 Abnormal stress test GRAM WITH CORS 4:11 PM CDT ACTIVATED CLOTTING TIME Routine 09/01/2018 4:10 PM CDT ACTIVATED CLOTTING TIME Routine 09/01/2018 3:45 PM CDT POC PANEL Routine 09/01/2018 12:48 PM CDT ESTIMATED GFR Routine 09/01/2018 12:48 PM CDT CBC WITH PLATELET AND Routine 07/23/2018 Blood in stool DIFFERENTIAL 2:52 PM CDT Anemia, unspecified type COMPREHENSIVE METABOLIC Routine 07/23/2018 Stage 3 chronic kidney PANEL 2:52 PM CDT disease (HCC) XR ABDOMEN 1 VW Routine 05/29/2018 Calculus of ureter 9:12 AM JUNIOR SYSTEMS ANALYST XR ABDOMEN 1 VW Routine 05/08/2018 Calculus of kidney 3:06 PM JUNIOR SYSTEMS ANALYST Calculus of ureter Urinary bladder stone XR ABDOMEN 1 VW Routine 04/10/2018 Calculus of kidney 9:22 AM JUNIOR SYSTEMS ANALYST Calculus of ureter XR ABDOMEN 1 VW Routine 03/27/2018 Hematuria syndrome 2:12 PM JUNIOR SYSTEMS ANALYST Calculus of kidney Calculus of ureter ESTIMATED GFR Routine 02/28/2018 9:42 AM JUNIOR SYSTEMS ANALYST POC CREATININE Routine 02/28/2018 9:[address] ABDOMEN PELVIS WO Routine 02/28/2018 Hematuria syndrome CONTRAST 9:13 AM JUNIOR SYSTEMS ANALYST Uric acid nephrolithiasis XR CHEST 2 VW [...] MMODE SPECTRAL 9:15 AM CDT COLOR DOPPLER ([id number]) POC GLUCOSE Routine 12/28/2017 5:46 AM CDT [...] GLUCOSE Routine 12/22/2017 2:27 PM CDT after 09/30/2017 Results * XR Abdomen 1 Vw (09/22/2018 10:21 AM CDT) Only the most recent of 5 results within the time period is included. Specimen Narrative Performed At EXAMINATION:XR ABDOMEN 1 VW HM [facility] INDICATION:N20.1 Calculus of ureter, N20.1 COMPARISON:05/29/2018 IMPRESSION: 1.Interval placement of a double-J left-sided ureteral stent. No definite renal calculi seen. 2.Clear lung bases. 3.Nonobstructive bowel gas pattern. Moderate stool burden. 4.Chronic appearing compression deformities of T12 and L2. [id number] Procedure Note Interface, Radiology Results Incoming - 09/22/2018 10:33 AM CDT EXAMINATION: XR ABDOMEN 1 VW INDICATION: N20.1 Calculus of ureter, N20.1 COMPARISON:05/29/2018 IMPRESSION: 1. Interval placement of a double-J left-sided ureteral stent. No definite renal calculi seen. 2. Clear lung bases. 3. Nonobstructive bowel gas pattern. Moderate stool burden. 4. Chronic appearing compression deformities of T12 and L2. [id number] Performing Organization Address City/[facility] Cent[facility]ode Phone Number [facility] [address] [place] [address] * POC glucose (09/09/2018 9:41 AM CDT) Only the most recent of 46 results within the time period is included. POC glucose 157 (H) 65 - 100 mg/dL [place] Comment: CARLOS DYSON Meter ID: [id number] [facility] Paper Products Machine Operator: [facility] Specimen Performing Organization Address City/[facility] Centercode Phone Number [facility] DEPARTMENT OF [address] [place] [address] PATHOLOGY AND GENOMIC MEDICINE [place] [facility] [address] * [place] Pyelogram Retrograde (09/09/2018 9:27 AM CDT) Only the most recent of 2 results within the time period is included. Specimen Narrative Performed At EXAMINATION:FL PYELOGRAM RETROGRADE [facility] INDICATION:Pain IMPRESSION: Intraoperative fluoroscopy provided. No radiologist present for procedure. Please see procedure note for details. Fluoroscopic images: 4 Fluoroscopy time: 20 seconds Procedure Note Interface, Radiology Results Incoming - 09/09/2018 10:47 AM CDT EXAMINATION: FL PYELOGRAM RETROGRADE INDICATION: Pain IMPRESSION: Intraoperative fluoroscopy provided. No radiologist present for procedure. Please see procedure note for details. Fluoroscopic images: 4 Fluoroscopy time: 20 seconds Performing Organization Address City/[facility] Centercode Phone Number [facility] [address] [place] [address] * US Renal (09/08/2018 5:54 PM CDT) Only the most recent of 2 results within the time period is included. Specimen Narrative Performed At EXAMINATION:US RENAL [facility] [place] CLINICAL HISTORY:N13.5 Crossing vessel and stricture of ureter without hydronephrosis, N20.0 Calculus of kidney, kidney lesionkidney stone COMPARISON:02/28/2018 TECHNIQUE:Ultrasound evaluation of the kidneys and bladder. Findings: 1.The right kidney measures 12.9 x 6.0 x 5.8 cm.The left kidney measures 11.9 x 5.5 x 7.1 cm.Normal renal cortical echogenicity. 2.Reidentified are some left renal stones, the largest measures 4 mm. There is a 5 cm left parapelvic renal cyst. This makes evaluation for hydronephrosis on the left difficult. there is no right hydronephrosis. 7 mm benign left renal cyst. 3.Small post void residual of 28 mL's. Bladder otherwise unremarkable. 4. Fatty infiltration of the liver. IMPRESSION: 1.5 cm left parapelvic renal cyst. This limits evaluation for hydronephrosis on the left. CT can be obtained as indicated. 2.Left renal stones, also would be better evaluated by CT. 3.Additional findings as above [id number] Procedure Note Interface, Radiology Results Incoming - 09/08/2018 6:11 PM CDT EXAMINATION: US RENAL CLINICAL HISTORY: N13.5 Crossing vessel and stricture of ureter without hydronephrosis, N20.0 Calculus of kidney, kidney lesion kidney stone COMPARISON: 02/28/2018 TECHNIQUE: Ultrasound evaluation of the kidneys and bladder. Findings: 1. The right kidney measures 12.9 x 6.0 x 5.8 cm. The left kidney measures 11.9 x 5.5 x 7.1 cm. Normal renal cortical echogenicity. 2. Reidentified are some left renal stones, the largest measures 4 mm. There is a 5 cm left parapelvic renal cyst. This makes evaluation for hydronephrosis on the left difficult. there is no right hydronephrosis. 7 mm benign left renal cyst. 3. Small post void residual of 28 mL's. Bladder otherwise unremarkable. 4. Fatty infiltration of the liver. IMPRESSION: 1. 5 cm left parapelvic renal cyst. This limits evaluation for hydronephrosis on the left. CT can be obtained as indicated. 2. Left renal stones, also would be better evaluated by CT. 3. Additional findings as above [id number] Performing Organization Address City/State/Zipcode Phone Number [facility] [address] [place] [address] * Estimated GFR (09/08/2018 3:46 PM CDT) Only the most recent of 3 results within the time period is included. Pathologist [facility] Estimated GFR 28 (A) mL/min/1.73 m2 [place] Comment: [facility] G1 >=90 Normal or high G2 60-89Mildly decreased V0x51-50 Mildly to moderately decreased C9w19-99 Moderately to severely decreased G4 15-29Severely decreased G5 <15Kidney failure The eGFR was calculated using the Chronic Kidney Disease Epidemiology Collaboration (CKD-EPI) equation. Interpretation is based on recommendations of the National Kidney Foundation-Kidney Disease Outcomes Quality Initiative (NKF-KDOQI) published in 2014. Specimen Plasma specimen Performing Organization Address [facility] Cent[facility]ode Phone Number [facility] [address] * Partial thromboplastin time, activated (09/08/2018 3:46 PM CDT) [facility] PTT 34.0 23.0 - 36.0 sec [place] Comment: [facility] PTT therapeutic range for [facility] unfractionated heparin is HOSPITAL 61.0-112.0 seconds which corresponds to Anti-Xa 0.3-0.7 U/ml. Note:Change in Panic Value The PTT Panic Value is changing from 110 sec. to 100 sec. due to new instrumentation and reagents. Correlation studies have been performed to validate this result. Specimen Blood Performing Organization Address City/[facility]/Zipcode Phone Number [facility] DEPARTMENT OF [address] [place] [phone] [address] * Prothrombin time with INR (09/08/2018 3:46 PM CDT) Only the most recent of 2 results within the time period is included. Prothrombin 13.6 11.5 - 14.5 sec [facility] INR 1.07 [place] Comment: CARLOS DYSON For patients on anticoagulant KASI therapy, reference ranges HOSPITAL below: Indication: INR Value Treatment of Venous Thrombosis, 2.0-3.0 pulmonary emboli, or prophylaxis of a venous thrombosis, or systemic emboli. High dose, high risk patients 3.0-4.5 with mechanical valves. NOTE:INR values over 3.0 are sometimes associated with gastrointestinal hemorrhage, especially values over 4.0. Specimen Blood Performing Organization Address City/State/Zipcode Phone Number [facility] DEPARTMENT OF [address] [facility] [place] [phone] PATHOLOGY AND GENOMIC MEDICINE [facility] [address] [facility] [address] * CBC with platelet and differential (09/08/2018 3:46 PM CDT) Only the most recent of 7 results within the time period is included. WBC 8.2 4.2 - 11.0 k/uL [facility] RBC 5.13 4.04 - 5.86 m/uL [facility] HGB 14.2 13.0 - 17.3 g/dL [facility] HCT 44.5 34.0 - 45.0 % [facility] MCV 86.7 80.0 - 98.0 fL [facility] MCH 27.7 27.0 - 34.0 pg [facility] MCHC 31.9 31.5 - 36.5 g/dL [facility] RDW - SD 44.7 37.0 - 51.0 fL [facility] MPV 10.2 7.4 - 10.4 fL [facility] Platelet count 245 150 - 400 k/uL [facility] Nucleated RBC 0.00 /100 WBC [facility] Neutrophils 51.9 36.0 - 66.0 % [facility] Lymphocytes 24.5 24.0 - 44.0 % [facility] Monocytes 9.4 (H) 0.0 - 6.0 % [facility] Eosinophils 12.6 (H) 0.0 - 6.0 % [facility] Basophils 0.7 0.0 - 1.2 % [facility] Immature 0.9 0.0 - 1.0 % [place] granulocytes [facility] Specimen Blood Performing Organization Address City/State/Zipcode Phone Number [facility] DEPARTMENT OF [address] [place] [address] PATHOLOGY AND GENOMIC MEDICINE [address] * Hemoglobin A1c (09/08/2018 3:46 PM CDT) Pathologist [facility] Hemoglobin A1C 7.3 (H) 4.0 - 5.6 % [place] Comment: [facility] HbA1c cutoffs for diagnosing [facility] diabetes: HOSPITAL 4.0% - 5.6%=normal 5.7% - 6.4%=increased risk for diabetes (prediabetes) >=6.5%=diabetes Goals for glycemic control (ADA 2016) < 7.0%Target for non adults with diabetes. More or less stringent targets may be appropriate for individual patients. <7.5% Target for Children and adolescents with type 1 diabetes. Specimen Blood Performing Organization Address City/[facility] [place]erc[place] [address] PATHOLOGY AND GENOMIC MEDICINE [address] * Basic metabolic panel (09/08/2018 3:46 PM CDT) Only the most recent of 3 results within the time period is included. Pathologist [facility] Sodium 143 135 - 150 mEq/L [facility] Potassium 4.2 3.5 - 5.0 mEq/L [facility] Chloride 103 98 - 112 mEq/L [facility] CO2 29 24 - 31 mmol/L [facility] Anion gap 11@ANIO 7 - 15 mEq/L [facility] BUN 31 (H) 7 - 18 mg/dL [facility] Creatinine 2.20 (H) 0.70 - 1.20 mg/dL [facility] Glucose 225 (H) 65 - 100 mg/dL [facility] Calcium 10.2 8.8 - 10.2 mg/dL [facility] Specimen Plasma specimen Performing Organization Address City/[facility]/Zipcode Phone Number [facility] DEPARTMENT OF [address] [place] [address] PATHOLOGY AND [facility] [address] * Fractional Flow [place] (09/01/2018 4:20 PM CDT) Specimen Narrative Performed At Please refer to the primary procedure result report for the FFR result. * Cv laborer shaft sinking procedure (09/01/2018 4:11 PM CDT) Specimen Narrative Performed At * Activated clotting time (09/01/2018 4:10 PM CDT) Only the most recent of 2 results within the time period is included. [facility] Activated 191.0 (H) 74.0 - 125.0 sec [place] clotting time Comment: [facility] Meter ID: [id number] [employer] Paper [employer] Machine Operator: [place] [employer] Specimen Performing Organization Address City/[facility]ercode Phone Number [facility] DEPARTMENT OF [address] [place] [phone] PATHOLOGY AND [address] * POC panel (09/01/2018 12:48 PM CDT) [facility] POC sodium 143 135 - 148 mmol/L [facility] POC potassium 3.9 3.5 - 5.0 mmol/L [facility] POC chloride 104 99 - 109 mmol/L [facility] POC CO2 27 24 - 31 mmol/L [facility] POC glucose 153 (H) 65 - 99 mg/dL [facility] POC BUN 28 (H) 8 - 24 mg/dL [facility] POC creatinine 2.0 (H) 0.7 - 1.2 mg/dl [facility] POC hemoglobin 12.9 (L) 14.0 - 18.0 g/dL [place] Comment: [facility] Meter ID: [id number] [facility] Paper Products Machine Operator: [facility] POC hematocrit 38 (L) 41 - 51 % [facility] POC anion gap 18 8 - 20 mmol/L [facility] Specimen Blood Performing Organization Address City/State/Zipcode Phone Number [facility] OF [address] [place] [address] PATHOLOGY AND GENOMIC MEDICINE [facility] [address] [facility] [address] * Comprehensive metabolic panel (07/23/2018 2:52 PM CDT) Only the most recent of 6 results within the time period is included. Pathologist [facility] Glucose 125 65 - 139 mg/dL [facility] Comment: DIAGNOSTICS Non-fasting [place] reference interval BUN, whole 39 (H) 7 - 25 mg/dL [facility] blood DIAGNOSTICS [place] Creatinine 2.47 (H) 0.70 - 1.18 mg/dL [facility] Comment: DIAGNOSTICS For patients >49 years of age, [place] the reference limit for Creatinine is approximately 13% higher for people identified as -Panamanian. EGFR Non-Afr. 25 (L) > OR=60 [facility] Pan[place]ian mL/min/1.73m2 DIAGNOSTICS [place] EGFR 29 (L) > OR=60 [facility] [place]ian mL/min/1.73m2 DIAGNOSTICS [place] BUN/creatinine 16 6 - 22 (calc) [facility] ratio [facility] [place] Sodium 140 135 - 146 mmol/L [facility] [place] Potassium 3.9 3.5 - 5.3 mmol/L [facility] [place] Chloride 101 98 - 110 mmol/L [facility] [place] CO2 27 20 - 32 mmol/L [facility] [place] Calcium 9.6 8.6 - 10.3 mg/dL [facility] [place] Protein 7.1 6.1 - 8.1 g/dL [facility] [place] Albumin, S 4.3 3.6 - 5.1 g/dL [facility] [place] Globulin, total 2.8 1.9 - 3.7 g/dL [facility] [place] Albumin/globuli 1.5 1.0 - 2.5 (calc) [facility] [place] Total bilirubin 1.3 (H) 0.2 - 1.2 mg/dL [facility] [place] Alkaline 60 40 - 115 U/L [facility] [place] AST 28 10 - 35 U/L [facility] [place] ALT 29 9 - 46 U/L [facility] [place] Specimen Blood Narrative Performed At FASTING:NO [facility] FASTING: NO Resulting Agency Comment Performing Organization Information: Site ID: [id number] Name: [facility] Address: [address] [place] [address] Director: Annabelle Montanez Performing Organization Address City/State/Zipcode Phone Number [facility] [place] [address] [place] [address] * POC creatinine (02/28/2018 9:42 AM JUNIOR SYSTEMS ANALYST) POC creatinine 2.3 (H) 0.7 - 1.2 mg/dl [facility] DEPART[facility] Comment: OF PATHOLOGY Meter ID: [id number] AND GENOMIC [employer] Machine Operator: Adelaida Zamorano [facility] Specimen Blood Performing Organization Address City/State/Zipcode Phone Number [facility] DEPARTMENT OF [address] [place] [address] PATHOLOGY AND GENOMIC MEDICINE * CT Abdomen Pelvis Wo Contrast (02/28/2018 9:13 AM JUNIOR SYSTEMS ANALYST) Only the most recent of 2 results within the time period is included. Specimen Narrative Performed At EXAMINATION:CT ABDOMEN PELVIS WO [...] the largest in the 7 mm range [id number] Procedure Note Hm Interface, Radiology Results Incoming - 02/28/2018 9:28 AM JUNIOR SYSTEMS ANALYST EXAMINATION: CT ABDOMEN PELVIS WO CONTRAST CLINICAL [...] the largest in the 7 mm range [id number] Performing Organization Address [facility] Phone Number [email or web address] [address] [place] [address] * XR Chest 2 Vw (02/20/2018 11:01 AM CDT) Specimen Narrative Performed At EXAMINATION:XR CHEST 2 VW RADIANT CLINICAL HISTORY:J20.9 Acute bronchitisunspecified, j20.9 COMPARISON:12/27/2017 IMPRESSION: Lungs are clear without infiltrate, pleural effusion or pneumothorax. Cardiomediastinal silhouette is enlarged, unchanged. Calcified thoracic aortic atherosclerotic changes. Osseous degenerative changes. [facility]-[id number] Procedure Note Interface, Radiology Results Incoming - 02/20/2018 11:08 AM CDT EXAMINATION: XR CHEST 2 VW CLINICAL HISTORY: J20.9 Acute bronchitis unspecified, j20.9 COMPARISON: 12/27/2017 IMPRESSION: Lungs are clear without infiltrate, pleural effusion or pneumothorax. Cardiomediastinal silhouette is enlarged, unchanged. Calcified thoracic aortic atherosclerotic changes. Osseous degenerative changes. [facility]-[id number] Performing Organization Address [facility] Phone Number [email or web address] [address] [place] [address] * ECG 12 lead (12/30/2017 9:46 AM CDT) Only the most recent of 3 results within the time period is included. Ventricular 87 [facility] MUSE rate Atrial rate 87 [facility] MUSE IN interval 130 [facility] MUSE QRSD interval 98 [...] now present-Vent. rate has increased BY32 BPM- Specimen Performing Organization Address City/State/Zipcode Phone Number [facility] [address] [place] [address] * Estimated GFR (12/30/2017 6:28 AM CDT) Only the most recent of 7 results within the time period is included. Pathologist [facility] GFR Non Af Amer 23 (A) mL/min/1.73 m2 [facility] DEPARTMENT OF PATHOLOGY AND GENOMIC MEDICINE GFR Af Amer 28 (A) mL/min/1.73 m2 [facility] DEPART[facility] Comment: OF PATHOLOGY Chronic kidney disease: <60 AND GENOMIC mL/min/1.73m2 MEDICINE Kidney failure: <15 mL/min/1.73m2 The estimated GFR [...] specimen Performing Organization Address City/State/Zipcode Phone Number [facility] [place] [address] [place] [address] PATHOLOGY AND GENOMIC MEDICINE * Echocardiogram complete w contrast and 3D if needed (12/28/2017 9:15 AM CDT) Velocity Ratio 0.77 m/s [facility] (V1/V2) IVS,d 0.97 cm [facility] EF 61.23 % [facility] Ascending aorta 3.96 cm [facility] LVPWD,d 1.00 cm [facility] AoV Mean PG 4.65 mmHg [facility] AV LVOT peak 4.98 mmHg [facility] gradient MV mean 1.05 mmHg [facility] gradient MV valve area p 3.07 cm2 [facility] 1/2 method PV Pk Grad 3.83 mmHg [facility] E/A ratio 1.05 [facility] E wave 226.09 msec [facility] decelartion time IVRT 64.70 msec [facility] LVOT Diam,S 2.10 cm [facility] LVOT area 3.46 cm2 [facility] LVOT Vmax 1.14 m/s [facility] LVOT VTI 0.29 m [facility] AoV Peak PG 8.87 mmHg [facility] MV Peak E Shashank 0.96 m/s [facility] MV stenosis 71.76 ms [facility] pressure 1/2 time MV Peak A Shashank 0.91 m/s [facility] Ao Root 3.65 cm [facility] Diameter AoV Area, Vmax 2.60 cm2 [facility] AoV Area, VTI 2.98 cm2 [facility] AoV Vmax 1.49 m/s [facility] Left Atrium 4.72 cm [facility] Dimension Anterior LV,d 5.35 cm [facility] LV,s 3.58 cm [facility] PV VMAX 0.96 m/s [facility] RVSP (TR) 45.18 mmHg [facility] TR Vpeak 2.97 mm/s [facility] MV E A ratio 1.06 mmHg [facility] TR pk grad 35.18 mmHg [facility] MR peak grad 4.47 mmHg [facility] RVSP 45.18 mmHg [facility] Ao Root 3.65 cm [facility] Diameter LV SYS VOL 53.63 ml [facility] LV MILLER VOL 138.32 ml [facility] LA area s A4C 25.78 cm2 [facility] LA Vol MOD A4C 83.50 ml [facility] LV SV Teich 2D 84.69 ml [facility] LVOT CO 15.81 l/min [facility] LVOT HR for 166.83 bpm [facility] LVOT CO MV Vmax 1.06 m [facility] MV VTI Tips 0.37 m [facility] AoV Vmn 1.04 [facility] IVS s 2D 1.31 [facility] AoV VTI 0.35 m [facility] LVOT Vmn 0.77 [facility] LVOT mean grad 2.78 mmHg [facility] LVPW s PLAX 1.50 cm [facility] MV Decel slope 4.25 m/s2 [facility] Specimen Narrative Performed At [facility] Left atrium size is mildly dilated. The left ventricle chamber size is normal. There is mild left ventricular concentric hypertrophy. Left Ventricular ejection fraction is 50 - 55%. The mitral valve appears thickened. There is mild mitral valve regurgitation. Spectral Doppler shows impaired relaxation pattern of left ventricular diastolic filling. There is pericardial effusion. Performing Organization Address City/[facility] Phone Number [facility] [address] [place] [address] * Troponin (12/28/2017 4:52 AM CDT) Only the most recent of 4 results within the time period is included. Pathologist [facility] Troponin <0.30 0.00 - 0.30 ng/mL [facility] DE[facility] Comment: OF PATHOLOGY 0.11 - 1.49 AND GENOMIC ng/mlMay MEDICINE indicate increased risk of acute coronary syndrome. >=1.5 ng/ml Consistent with acute myocardial infarction. The diagnostic value of a single normal or non-diagnostic result is questionable.Serial samples at 2-6 hour intervals are required to rule out acute myocardial injury. Specimen Plasma specimen Performing Organization Address [facility] Cent[facility]ode Phone Number [place] [address] [place] [address] PATHOLOGY AND [employer] MEDICINE * Thyroid stimulating hormone (12/28/2017 4:52 AM CDT) [facility] TSH 1.96 0.27 - 4.20 uIU/mL [facility] DEPARTMENT OF PATHOLOGY AND [employer] MEDICINE Specimen Plasma specimen Performing Organization Address [facility]ode Phone Number [place] [address] [place] [address] PATHOLOGY AND [employer] MEDICINE * NM Lung Ventilation Perfusion (12/27/2017 4:55 PM CDT) Specimen Narrative Performed At CLINICAL HISTORY: [facility] hospcontrast allergy RADIANT TECHNIQUE: The patient breathed 15-20 mCi of xenon-133 gas through a closed ventilation system while dynamic imaging of the lungs was performed in the posterior and anterior projections. The patient was then injected with 5 mCi of [id number] intravenously, followed by imaging of the lungs in anterior, posterior, and oblique projections. FINDINGS: Nonsegmental, though large, perfusion defect left upper lobe near the hilum and aortic arch. Minimal air trapping in the left lung on ventilation. IMPRESSION: Low Probability for pulmonary embolism. [facility]-[id number] Procedure Note Interface, Radiology Results Incoming - 12/27/2017 5:01 PM CDT CLINICAL HISTORY: [facility] contrast allergy TECHNIQUE: The patient breathed 15-20 mCi of xenon-133 gas through a closed ventilation system while dynamic imaging of the lungs was performed in the posterior and anterior projections. The patient was then injected with 5 mCi of whciwzeqpr-[id number] intravenously, followed by imaging of the lungs in anterior, posterior, and oblique projections. FINDINGS: Nonsegmental, though large, perfusion defect left upper lobe near the hilum and aortic arch. Minimal air trapping in the left lung on ventilation. IMPRESSION: Low Probability for pulmonary embolism. [id number] Performing Organization Address City/State/Zipcode Phone Number [facility] [address] [place] [address] * Urinalysis screen and microscopy, with reflex to culture (12/27/2017 1:15 PM CDT) Only the most recent of 2 results within the time period is included. Specimen site Clean catch [facility] DEPARTMENT OF PATHOLOGY AND GENOMIC MEDICINE Color, UA Yellow [facility] DEPART[facility] OF PATHOLOGY AND GENOMIC MEDICINE Appearance, UA Clear [facility] DE[facility] OF PATHOLOGY AND GENOMIC MEDICINE Specific 1.015 1.001 - 1.035 [facility] DE[facility] gravity, OF PATHOLOGY AND GENOMIC MEDICINE pH, UA 6.0 5.0 - 8.5 [facility] DE[facility]MENT OF PATHOLOGY AND GENOMIC MEDICINE Protein, UA 2+ (A) Negative [facility] DE[facility]MENT OF PATHOLOGY AND GENOMIC MEDICINE Glucose, UA 2+ (A) Negative [facility] DE[facility]MENT OF PATHOLOGY AND GENOMIC MEDICINE Ketones, UA Negative Negative [facility] DEPARTMENT OF PATHOLOGY AND GENOMIC MEDICINE Bilirubin, UA Negative Negative [facility] DEPARTMENT OF PATHOLOGY AND GENOMIC MEDICINE Blood, UA Large (A) Negative [facility] DEPARTMENT OF PATHOLOGY AND GENOMIC MEDICINE Nitrite, UA Negative Negative [facility] DEPARTMENT OF PATHOLOGY AND GENOMIC MEDICINE Urobilinogen, Negative <2.0 [facility] DE[facility] UA OF PATHOLOGY AND GENOMIC MEDICINE Leukocyte Moderate (A) Negative [facility] DE[facility] esterase, UA OF PATHOLOGY AND GENOMIC MEDICINE WBC, UA 102 (H) 0 - 1 /HPF [facility] DEPARTMENT OF PATHOLOGY AND GENOMIC MEDICINE RBC, UA >200 (H) 0 - 5 /HPF [facility] DEPARTMENT OF PATHOLOGY AND GENOMIC MEDICINE Bacteria, UA None seen None seen [facility] DEPARTMENT OF PATHOLOGY AND GENOMIC MEDICINE Yeast, UA None seen [facility] DEPARTMENT OF PATHOLOGY AND GENOMIC MEDICINE Yeast with None seen [facility] DE[facility] pseudohyphae, OF PATHOLOGY UA AND GENOMIC MEDICINE Specimen Urine Performing Organization Address City/[facility]/Zipcode Phone Number [facility] DEPARTMENT OF [address] [place] [address] PATHOLOGY AND GENOMIC MEDICINE * Gram stain (12/27/2017 1:15 PM CDT) Gram stain No organisms seen [facility] DEPARTMENT result Comment: OF PATHOLOGY Specimen Information AND GENOMIC Specimen Source: Urine MEDICINE Specimen Site: Clean catch Specimen Urine Performing Organization Address City/[facility]ode Phone Number [facility] DEPARTMENT OF [address] [place] [address] PATHOLOGY AND GENOMIC MEDICINE * Urine culture (12/27/2017 1:15 PM CDT) Only the most recent of 2 results within the time period is included. Urine culture Gram positive frandy [facility] DEPARTMENT isolate 10-1 cfu/ml OF PATHOLOGY (A) AND GENOMIC Comment: MEDICINE Specimen Information Specimen Source: Urine Specimen Site: Clean catch Specimen Urine Performing Organization Address City/[facility]/Zipcode Phone Number [facility] DEPARTMENT OF [address] [place] [address] PATHOLOGY AND GENOMIC MEDICINE * B natriuretic peptide (12/27/2017 12:08 PM CDT) BNP 211 (H) 0 - 100 pg/mL [facility] DEPARTMENT OF PATHOLOGY AND GENOMIC MEDICINE Specimen Blood Performing Organization Address City/[facility]/Zipcode Phone Number [facility] DEPARTMENT OF [address] [place] [address] PATHOLOGY AND GENOMIC MEDICINE * ECG ED Preliminary Interpretation - NOT AN ORDER (12/27/2017 11:53 AM CDT) Narrative Performed At Virginie Alcantara MD 12/27/2017 11:53 AM ECG ED Preliminary Interpretation - Not an Order Performed by: VIRGINIE ALCANTARA Authorized by: VIRGINIE ALCANTARA ECG reviewed by ED Physician in the absence of a cognos bi administrator: yes Previous ECG: Previous ECG:Compared to current Interpretation: Interpretation: normal Rate: ECG rate:55 ECG rate assessment: bradycardic Rhythm: Rhythm: sinus rhythm and sinus bradycardia Ectopy: Ectopy: none QRS: QRS axis:Normal Conduction: Conduction: normal ST segments: ST segments:Normal T waves: T waves: normal * XR Chest 1 Vw Portable (12/27/2017 11:47 AM CDT) Specimen Narrative Performed At EXAMINATION:XR CHEST 1 VW PORTABLE [facility] CLINICAL HISTORY:Chest Pain COMPARISON:March 20, 2016 chest IMPRESSION: No acute abnormality. No change compared to previous Hypoinflation of the lungs unchanged. Mild interstitial scarring as before. No infiltrate congestion or effusion. No pneumothorax Cardiomediastinal silhouette normal size. Mild vascular ectasia and atherosclerosis Old rib fractures on the right. Cholecystectomy clips incidentally noted. Contrast in the colon Single view chest [facility]-[id number] Procedure Note Interface, Radiology Results Incoming - [...] Contrast in the colon Single view chest [facility]-[id number] Performing Organization Address City/[facility]/Zipcode Phone Number [facility] [address] [place] [address] * Phosphorus level (12/25/2017 5:42 AM CDT) Phosphorus 3.2 2.4 - 4.5 mg/dL [facility] DEPARTMENT OF PATHOLOGY AND GENOMIC MEDICINE Specimen Plasma specimen Performing Organization Address City/[facility] [place] [address] PATHOLOGY AND GENOMIC MEDICINE * Magnesium level (12/25/2017 5:42 AM CDT) Magnesium 2.30 1.60 - 2.40 mg/dL [facility] DEPARTMENT OF PATHOLOGY AND GENOMIC MEDICINE Specimen Plasma specimen Performing Organization Address [facility]/[place] [address] PATHOLOGY AND GENOMIC MEDICINE * Prostate specific antigen (12/24/2017 12:26 PM CDT) PSA 3.2 0.0 - 4.0 ng/mL [facility] DEPARTMENT Comment: OF PATHOLOGY The MARGOT 8000 PSA immunoassay AND GENOMIC was used. MEDICINE Results obtained with different assay methods or kits should not be used interchangeably and may be different. Specimen Plasma specimen Performing Organization Address City/State/Zipcode Phone Number [facility] DEPARTMENT OF [address] [place] [address] PATHOLOGY AND GENOMIC MEDICINE after 09/30/2017 Insurance Type Payer Benefit Subscriber ID Effective Phone Address Plan / Dates Group Medicare MEDICARE MEDICARE xxxxxxxxxxx 2009-P [place], PART A AND resent [place] B HMO AETNA AETNA xxxxxxxxxx 2017-P HMO,POS,EP resent O, [facility] ([place] [address] Advance Directives Patient has advance care planning documents on file. For more information, clair saxena contact: Jorge L David [address] [place] [address]
[2018-10-01 14:40] VITALS: BP 133/72
--- NOTE | 2018-10-02 07:39 | Operative Report ---
DATE OF PROCEDURE: 10/01/2018 SURGEON: Kel Rowe MD PREOPERATIVE DIAGNOSES: 1. Left renal pelvic calculus, 11 x 11 mm. 2. Left upper 3rd ureteral calculus, 6 x 6 mm. POSTOPERATIVE DIAGNOSIS: 1. Left renal pelvic calculus, 11 x 11 mm. 2. Left upper 3rd ureteral calculus, 6 x 6 mm. OPERATION: Left renal pelvic ESWL. ANESTHETIC: General. INDICATIONS: Mr. King is a 73-year-old male, who presented with a chief complaint of pain on the left side and was noted to have 2 large calculi, 11 x 11 and 6 x 6 mm. Left double-J stent was placed. DESCRIPTION OF PROCEDURE: This patient was placed on the table in the lithotomy position and was prepped and draped in a sterile manner after satisfactory anesthesia. The left renal pelvic calculus was brought into position between F1 and F2 of the fluoroscopic monitors. Once this was done, the lithotripsy was started at 2 kilovolts and slowly and gradually increased to 7 kilovolts. Observation of the stone pulverization was done at 200 and 250 shocks intermittently. At 3000 shocks, it was felt that the left renal pelvic calculus has pulverized completely. The lithotripsy was shut down. The patient was moved into the gantry and moved to the recovery room. The patient tolerated the procedure well and was taken to the recovery room in satisfactory condition. Plans for this patient is to return to the office in about 1 week and at that time, a KUB will be performed and then we will proceed with whatever indicated procedure for the other stone. Kel Rowe MD MA/PAULAL /[id number]
== END | disposition home or self-care (01) ==
LOC: OR 07:56
PROVIDERS: ATTEND Specialist
DX: N20.0 Calculus of kidney (principal); N20.1 Calculus of ureter; Z96.0 Presence of urogenital implants; E11.22 Type 2 diabetes mellitus with diabetic chronic kidney disease; I12.9 Hypertensive chronic kidney disease with stage 1 through stage 4 chronic kidney disease, or unspecified chronic kidney disease; N18.9 Chronic kidney disease, unspecified; I25.10 Atherosclerotic heart disease of native coronary artery without angina pectoris; I25.2 Old myocardial infarction; J45.909 Unspecified asthma, uncomplicated; G47.33 Obstructive sleep apnea (adult) (pediatric); F41.9 Anxiety disorder, unspecified; Z91.041 Radiographic dye allergy status; Z01.812 Encounter for preprocedural laboratory examination; Z79.4 Long term (current) use of insulin
CPT/HCPCS: 36415 ×2; 50590; 80048; 82948; 85025; 85610; J1170; J1956; J2001; J2405; J2704

== ENCOUNTER → 2018-10-15 | Day surgery (SDC) | payer MEDICARE, OTHER ==
[~2018-10-15] MED LIST changes: +ASPIR 8181 MG PO; +BISOPROLOL PO; +GENTAMICIN 120MG/NS 100ML 100 ML ONE; +HYDROCHLOROTHIAZIDE PO; -HYDROMORPHONE 2MG/ML 2 MG/ML ML ONE; +IOPAMIDOL 610MG/1ML 300 MG/ML VIAL IV ONE; -LEVOFLOXACIN 500MG/D5W 100ML 100 ML IV ONE; +MIDAZOLAM HCL 2 MG/2 ML VIAL ONE; +amiodarone PO
--- OUTSIDE RECORDS SUMMARY | 2018-10-15 07:55 | XMS REPORT ---
Author Author [facility] Address Unknown Phone Unavailable Care Team Providers Care Reprint Sorter Name Role Phone Zamzam LOO Unavailable Unavailable Problems This patient has no known problems. Allergies, Adverse Reactions, Alerts This patient has no known allergies or adverse reactions. Medications This patient has no known medications. Results Test Description Test Time Test Comments Text Results Atomic Results Result Comments CHEST 2 VIEWS 2018-04-23 09:59:00 [place] [address] Patient Name: CIRO FLORES MR #: [id number] : 1945 Age/Sex: 72/M Req #: [id number] Adm Physician: Ordered by: ANASTASIA LOO MD Report #: [id number] Location: OR Room/Bed: Procedure: [id number] DX/CHEST 2 VIEWS Exam Date: Exam Time: [...]
--- OUTSIDE RECORDS SUMMARY | 2018-10-15 07:55 | XMS REPORT | Clinical Summary ---
Author Author Jorge L [facility] Organization [facility] Address Unknown Phone Unavailable Care Team Providers Care Manager Call Name Role Phone Paulino Mills DO PCP [...] Rowe MD Calculus of ureter (Primary Dx) 10/13/2018 Transcribe Access Orders Kel oRwe MD Calculus of ureter (Primary Dx) 09/22/2018 [...] LEFT HEART CATH LV GRAM WITH CORS [[id number] (CPT)] 09/01/2018 Surgery Procedural Cardiology Rishi Ruth MD Abnormal stress test 09/01/2018 [facility] General Internal Medicine Encounter Elvia Crawford [...] 12/22/2017 Orders Only General Internal Medicine after 10/14/2017 Family History Medical History Relation Name Comments [...] Lot Implanted Type Area Manufactur er 06/19/2020 [id number] / / [id number] Device Vasclr Clsr Baln Cath 10ml Cardiovasc N/A: N/A CARDINAL Lkng Syr 6fr [id number] Implants Implanted: 09/01/2018 (Quantity not on file) 10/17/2020 [id number] / / [id number] Stent Set Ureteral [facility] Surgical N/A: N/A COOK 6fr X 28cm - [id number] Stents UROLOGICAL Implanted: Qty: 1 on 12/25/2017 by Kel Rowe MD 01/08/2021 [id number] / / [id number] Stent Uretl Polrs Ult 2drmtr 6fr Urological Left: Ureter, BSC 28cm Hydroplus W/O Gw - [id number] Implants [place] UROLOGY Implanted: Qty: 1 on 09/09/2018 by or Kel Dwyer MD Procedures Comments Procedure Name Priority Date/Time Associated Diagnosis XR ABDOMEN 1 VW Routine 10/13/2018 Calculus of ureter 8:57 AM CDT XR ABDOMEN 1 VW Routine 09/22/2018 Calculus of ureter 10:21 AM CDT POC GLUCOSE Routine 09/09/2018 9:41 AM CDT FL PYELOGRAM RETROGRADE Routine 09/09/2018 9:27 AM CDT [place] AN ELECTIVE Routine 09/09/2018 SUPRAGLOTTIC AIRWAY 9:08 [...] Routine 05/29/2018 Calculus of ureter 9:12 AM AIR CONDITIONING COIL ASSEMBLER XR ABDOMEN 1 VW Routine 05/08/2018 Calculus of kidney 3:06 PM [employer] CONDITIONING [employer]IL ASSEMBLER Calculus of ureter Urinary bladder stone XR ABDOMEN 1 VW Routine 04/10/2018 Calculus of kidney 9:22 AM AIR CONDITIONING COIL ASSEMBLER Calculus of ureter XR ABDOMEN 1 VW Routine 03/27/2018 Hematuria syndrome 2:12 PM AIR CONDITIONING [employer]IL ASSEMBLER Calculus of kidney Calculus of ureter ESTIMATED GFR Routine 02/28/2018 9:42 AM AIR CONDITIONING COIL ASSEMBLER POC CREATININE Routine 02/28/2018 9:42 AM AIR [employer] CT ABDOMEN PELVIS WO Routine 02/28/2018 Hematuria syndrome CONTRAST 9:13 AM AIR CONDITIONING COIL ASSEMBLER Uric acid nephrolithiasis XR CHEST 2 VW [...] MMODE SPECTRAL 9:15 AM CDT COLOR DOPPLER (37280) POC GLUCOSE Routine 12/28/2017 5:46 AM CDT [...] GLUCOSE Routine 12/22/2017 2:27 PM CDT after 10/14/2017 Results * XR Abdomen 1 Vw (10/13/2018 8:57 AM CDT) Only the most recent of 6 results within the time period is included. Specimen Narrative Performed At EXAMINATION:XR ABDOMEN 1 VW [facility] CLINICAL HISTORY:N20.1 Calculus of ureter, n20.1 COMPARISON:None. IMPRESSION: There is a nonspecific bowel gas pattern Stent in the left ureter, unchanged from prior The gallbladder has been removed Age related changes are present throughout the bony structures without evidence of a suspicious focal lesion. [id number] Procedure Note Interface, Radiology Results Incoming - 10/13/2018 9:09 AM CDT EXAMINATION: XR ABDOMEN 1 VW CLINICAL HISTORY: N20.1 Calculus of ureter, n20.1 COMPARISON: None. IMPRESSION: There is a nonspecific bowel gas pattern Stent in the left ureter, unchanged from prior The gallbladder has been removed Age related changes are present throughout the bony structures without evidence of a suspicious focal lesion. [id number] Performing Organization Address City/[facility]/Zipcode Phone Number [facility] [address] [place] [address] * POC glucose (09/09/2018 9:41 AM CDT) Only the most recent of 46 results within the time period is included. POC glucose 157 (H) 65 - 100 mg/dL ANGIE Comment: CARLOS DYSON Meter ID: [id number] [facility] Bird Tender: [facility] Specimen Performing Organization Address City/State/Zipcode Phone Number [facility] DEPARTMENT OF [facility]1 [address] [place] [phone] PATHOLOGY AND GENOMIC MEDICINE [place] [address] [place] [address] * [place] Pyelogram Retrograde (09/09/2018 9:27 [...] Fluoroscopy time: 20 seconds Performing Organization Address City/State/Zipcode Phone Number SER[facility] [address] [place] [address] * US Renal (09/08/2018 5:54 PM CDT) Only the most recent of 2 results within the time period is included. Specimen Narrative Performed At EXAMINATION:US RENAL [facility] CLINICAL HISTORY:N13.5 Crossing vessel and stricture of [...] evaluated by CT. 3.Additional findings as above [id number] Procedure Note Interface, Radiology Results Incoming - [...] by CT. 3. Additional findings as above [id number] Performing Organization Address City/[facility]/Zipcode Phone Number [facility] [address] [place] [address] * Estimated GFR (09/08/2018 3:46 PM CDT) Only the most recent of 3 results within the time period is included. Pathologist [facility] Estimated GFR 28 (A) mL/min/1.73 m2 ANGIE Comment: CARLOS [facility] G1 >=90 Normal or high G2 60-89Mildly decreased [id number] Mildly to moderately decreased U4j35-01 Moderately to severely decreased G4 15-29Severely decreased G5 <15Kidney failure The eGFR was calculated using the Chronic Kidney Disease Epidemiology Collaboration (CKD-EPI) equation. Interpretation is based on recommendations of the National Kidney Foundation-Kidney Disease Outcomes Quality Initiative (NKF-KDOQI) published in 2014. Specimen Plasma specimen Performing Organization Address [facility] Phone Number [phone] [place] [address] * Partial thromboplastin time, activated (09/08/2018 3:46 PM CDT) [facility] PTT 34.0 23.0 - 36.0 sec ANGIE Comment: [facility] PTT therapeutic range for [facility] unfractionated heparin is HOSPITAL 61.0-112.0 seconds which corresponds to Anti-Xa 0.3-0.7 U/ml. Note:Change in Panic Value The PTT Panic Value is changing from 110 sec. to 100 sec. due to new instrumentation and reagents. Correlation studies have been performed to validate this result. Specimen Blood Performing Organization Address [facility] Phone Number [facility] OF [address] [place] [address] PATHOLOGY AND GENOMIC MEDICINE [facility] [address] [facility]. [address] * Prothrombin time with INR (09/08/2018 3:46 PM CDT) Only the most recent of 2 results within the time period is included. Pathologist [facility] Prothrombin 13.6 11.5 - 14.[address] [facility] [place] [place] INR 1.07 ANGIE Comment: CARLOS DYSON For patients on anticoagulant [...] [facility] [address] [facility] [place] [address] PATHOLOGY AND GENOMIC MEDICINE [place] [address] [address] * CBC with platelet and differential (09/08/2018 3:46 PM CDT) Only the most recent of 7 results within the time period is included. Pathologist [facility] WBC 8.2 4.2 - 11.0 k/uL [facility] RBC 5.13 4.04 - 5.86 m/uL [facility] HGB 14.2 13.0 - 17.3 g/dL [facility] HCT 44.5 34.0 - 45.0 % [facility] MCV 86.7 80.0 - 98.0 fL [facility] MCH 27.7 27.0 - 34.0 pg [facility] MCHC 31.9 31.5 - 36.5 g/dL [facility] RDW - SD 44.7 37.0 - 51.0 fL [facility] MPV 10.2 7.4 - 10.4 fL [facility] Platelet count 245 150 - 400 k/uL [facility] Nucleated RBC 0.00 /100 WBC [facility] Neutrophils 51.9 36.0 - 66.0 % [facility] Lymphocytes 24.5 24.0 - 44.0 % [facility] Monocytes 9.4 (H) 0.0 - 6.0 % [facility] Eosinophils 12.6 (H) 0.0 - 6.0 % [facility] Basophils 0.7 0.0 - 1.2 % [facility] Immature 0.9 0.0 - 1.0 % ANGIE granulocytes [facility] Specimen Blood Performing Organization Address City/State/Zipcode Phone Number [place] [phone] [place] [address] PATHOLOGY AND GENOMIC MEDICINE [address] * Hemoglobin A1c (09/08/2018 3:46 PM CDT) Pathologist [facility] Hemoglobin A1C 7.3 (H) 4.0 - 5.6 % ANGIE Comment: [facility] HbA1c cutoffs for diagnosing [facility] diabetes: HOSPITAL 4.0% - 5.6%=normal 5.7% - 6.4%=increased risk for diabetes (prediabetes) >=6.5%=diabetes Goals for glycemic control (ADA 2016) < 7.0%Target for non adults with diabetes. More or less stringent targets may be appropriate for individual patients. <7.5% Target for Children and adolescents with type 1 diabetes. Specimen Blood Performing Organization Address City/State/[place] [address] PATHOLOGY AND GENOMIC MEDICINE [address] * Basic metabolic panel (09/08/2018 3:46 PM CDT) Only the most recent of 3 results within the time period is included. Pathologist [facility] Sodium 143 135 - 150 mEq/L [facility] Potassium 4.2 3.5 - 5.0 mEq/L [facility] Chloride 103 98 - 112 mEq/L [facility] CO2 29 24 - 31 mmol/L [facility] Anion gap 11@ANIO 7 - 15 mEq/L [facility] BUN 31 (H) 7 - 18 mg/dL [facility] Creatinine 2.20 (H) 0.70 - 1.20 mg/dL [facility] Glucose 225 (H) 65 - 100 mg/dL [facility] Calcium 10.2 8.8 - 10.2 mg/dL [facility] Specimen Plasma specimen Performing Organization Address City/[facility]/Zipcode Phone Number [facility] OF [address] [facility] [place] [address] [facility] AND [facility] [address] Juan [address] * Fractional Flow [place] (09/01/2018 4:20 PM CDT) Specimen Narrative Performed At Please refer to the primary procedure result report for the FFR result. * Cv slab lifting supervisor procedure (09/01/2018 4:11 PM CDT) Specimen Narrative Performed At * Activated clotting time (09/01/2018 4:10 PM CDT) Only the most recent of 2 results within the time period is included. Pathologist [facility] Activated 191.0 (H) 74.0 - 125.0 sec ANGIE clotting time Comment: CARLOS [facility] Meter ID: [id number] KASI Bird Tender: [facility] Specimen Performing Organization Address City/[facility] Phone Number [facility] [place] [phone] PATHOLOG[facility] AND [facility] [address] * POC panel (09/01/2018 12:48 PM CDT) POC sodium 143 135 - 148 mmol/L [facility] POC potassium 3.9 3.5 - 5.0 mmol/L [facility] POC chloride 104 99 - 109 mmol/L [facility] POC CO2 27 24 - 31 mmol/L [facility] POC glucose 153 (H) 65 - 99 mg/dL [facility] POC BUN 28 (H) 8 - 24 mg/dL [facility] POC creatinine 2.0 (H) 0.7 - 1.2 mg/dl [facility] POC hemoglobin 12.9 (L) 14.0 - 18.0 g/dL ANGIE Comment: CARLOS [facility] Meter ID: [id number] [facility] Bird Tender: [facility] POC hematocrit 38 (L) 41 - 51 % [facility] POC anion gap 18 8 - 20 mmol/L [facility] Specimen Blood Performing Organization Address City/State/Zipcode Phone Number [facility] OF [address] [place] [address] PATHOLOGY AND GENOMIC MEDICINE [place] [address] [place], [place] [phone] [place] [address] * Comprehensive metabolic panel (07/23/2018 2:52 PM CDT) Only the most recent of 6 results within the time period is included. Pathologist [facility] Glucose 125 65 - 139 mg/dL [facility] Comment: DIAGNOSTICS Non-fasting ANGIE reference interval BUN, whole 39 (H) 7 - 25 mg/dL [facility] blood DIAGNOSTICS ANGIE Creatinine 2.47 (H) 0.70 - 1.18 mg/dL [facility] Comment: DIAGNOSTICS For patients >49 years of age, ANGIE the reference limit for Creatinine is approximately 13% higher for people identified as -Central African. EGFR Non-Afr. 25 (L) > OR=60 [facility] [place] mL/min/1.73m2 DIAGNOSTICS ANGIE EGFR 29 (L) > OR=60 [facility] [place] mL/min/1.73m2 [facility]NOSTICS ANGIE BUN/creatinine 16 6 - 22 (calc) [facility] ratio [facility]AGNOSTICS ANGIE Sodium 140 135 - 146 mmol/L [facility] ANGIE Potassium 3.9 3.5 - 5.3 mmol/L [facility] ANGIE Chloride 101 98 - 110 mmol/L [facility] ANGIE CO2 27 20 - 32 mmol/L [facility] ANGIE Calcium 9.6 8.6 - 10.3 mg/dL [facility] ANGIE Protein 7.1 6.1 - 8.1 g/dL [facility] ANGIE Albumin, S 4.3 3.6 - 5.1 g/dL [facility] ANGIE Globulin, total 2.8 1.9 - 3.7 g/dL [facility] (calc) [facility]ST[facility] ANGIE Albumin/globuli 1.5 1.0 - 2.5 (calc) [facility] n ratio [facility]AGNOSTICS ANGIE Total bilirubin 1.3 (H) 0.2 - 1.2 mg/dL [facility] ANGIE Alkaline 60 40 - 115 U/L [facility] phosphatase [facility] ANGIE AST 28 10 - 35 U/L [facility] [place]GIE ALT 29 9 - 46 U/L [facility] ANGIE Specimen Blood Narrative Performed At FASTING:NO [facility] FASTING: NO Resulting Agency Comment Performing Organization Information: Site ID: [id number] [facility] Address: [address] [place] [id number] Director: Annabelle Montanez Performing Organization Address City/State/Zipcode Phone Number [employer] ANGIE [address] [place] [address] * POC creatinine (02/28/2018 9:42 AM AIR CONDITIONING COIL ASSEMBLER) POC creatinine 2.3 (H) 0.7 - 1.2 mg/dl [facility] Comment: OF PATHOLOGY Meter ID: [id number] AND GENOMIC Bird Tender: Adelaida Zamorano [facility] Specimen Blood Performing Organization Address City/State/Zipcode Phone Number [facility] OF [address] [facility] [place] [address] PATHOLOGY AND GENOMIC MEDICINE * CT Abdomen Pelvis Wo Contrast (02/28/2018 9:13 AM AIR CONDITIONING COIL ASSEMBLER) Only the most recent of 2 results [...] the largest in the 7 mm range [id number] Procedure Note Hm Interface, Radiology Results Incoming - 02/28/2018 9:28 AM AIR CONDITIONING COIL ASSEMBLER EXAMINATION: CT ABDOMEN PELVIS WO CONTRAST CLINICAL [...] the largest in the [id number] Performing Organization Address [facility] Phone Number [employer] [address] [place] [address] * XR Chest 2 Vw (02/20/2018 11:01 AM CDT) Specimen Narrative Performed At EXAMINATION:XR CHEST 2 VW [facility] CLINICAL HISTORY:J20.9 Acute bronchitisunspecified, j20.9 COMPARISON:12/27/2017 IMPRESSION: Lungs are clear without infiltrate, pleural effusion or pneumothorax. Cardiomediastinal silhouette is enlarged, unchanged. Calcified thoracic aortic atherosclerotic changes. Osseous degenerative changes. [facility]-[id number] Procedure Note Interface, Radiology Results Incoming - 02/20/2018 11:08 AM CDT EXAMINATION: XR CHEST 2 VW CLINICAL HISTORY: J20.9 Acute bronchitis unspecified, j20.9 COMPARISON: 12/27/2017 IMPRESSION: Lungs are clear without infiltrate, pleural effusion or pneumothorax. Cardiomediastinal silhouette is enlarged, unchanged. Calcified thoracic aortic atherosclerotic changes. Osseous degenerative changes. [facility]-[id number] Performing Organization Address [facility] Phone Number [employer] [address] [place] [address] * ECG 12 lead (12/30/2017 9:46 AM CDT) Only the most recent of 3 results within the time period is included. Ventricular 87 [facility] MUSE rate Atrial rate 87 [facility] MUSE [place] interval 130 [facility] MUSE QRSD interval 98 [...] Specimen Performing Organization Address City/State/Zipcode Phone Number [facility] MUSE [address] [place] [address] * Estimated GFR (12/30/2017 6:28 AM CDT) Only the most recent of 7 results within the time period is included. GFR Non Af Amer 23 (A) mL/min/1.73 m2 [facility] OF PATHOLOGY AND GENOMIC MEDICINE GFR Af Amer 28 (A) mL/min/1.73 m2 [facility] Comment: OF PATHOLOGY Chronic kidney disease: [...] specimen Performing Organization Address City/State/Zipcode Phone Number [facility] [place] [address] [place] [address] PATHOLOGY AND GENOMIC MEDICINE * Echocardiogram complete [...] There is pericardial effusion. Performing Organization Address City/[facility]/Zipcode Phone Number [facility] [address] [place] [address] * Troponin (12/28/2017 4:52 AM CDT) Only the most recent of 4 results within the time period is included. Pathologist [facility] Troponin <0.30 0.00 - 0.30 ng/mL [facility] Comment: OF PATHOLOGY 0.11 - 1.49 AND GENOMIC ng/mlMay MEDICINE indicate increased risk of acute coronary syndrome. >=1.5 ng/ml Consistent with acute myocardial infarction. The diagnostic value of a single normal or non-diagnostic result is questionable.Serial samples at 2-6 hour intervals are required to rule out acute myocardial injury. Specimen Plasma specimen Performing Organization Address [facility] Phone Number [facility]. [place] [phone] PATHOLOGY AND [employer] MEDICINE * Thyroid stimulating hormone (12/28/2017 4:52 AM CDT) Pathologist [facility] TSH 1.96 0.27 - 4.20 uIU/mL [facility] OF PATHOLOGY AND GENOMIC MEDICINE Specimen Plasma specimen Performing Organization Address City/[facility] Phone Number [place] [phone] [facility]. [place] [phone] PATHOLOGY AND [employer] MEDICINE * NM Lung Ventilation Perfusion (12/27/2017 4:55 PM CDT) Specimen Narrative Performed At CLINICAL HISTORY: [facility] TECHNIQUE: The patient breathed 15-20 mCi of xenon-133 gas through a closed ventilation system while dynamic imaging of the lungs was performed in the posterior and anterior projections. The patient was then injected with 5 mCi of [id number] intravenously, followed by imaging of the lungs in anterior, posterior, and oblique projections. FINDINGS: Nonsegmental, though large, perfusion defect left upper lobe near the hilum and aortic arch. Minimal air trapping in the left lung on ventilation. IMPRESSION: Low Probability for pulmonary embolism. [facility]-[id number] Procedure Note Interface, Radiology Results Incoming - 12/27/2017 5:01 PM CDT CLINICAL HISTORY: sob [facility] hosp contrast allergy TECHNIQUE: The patient breathed 15-20 mCi of xenon-133 gas through a closed ventilation system while dynamic imaging of the lungs was performed in the posterior and anterior projections. The patient was then injected with 5 mCi of [id number] intravenously, followed by imaging of the lungs in anterior, posterior, and oblique projections. FINDINGS: Nonsegmental, though large, perfusion defect left upper lobe near the hilum and aortic arch. Minimal air trapping in the left lung on ventilation. IMPRESSION: Low Probability for pulmonary embolism. [facility]-[id number] Performing Organization Address City/State/Zipcode Phone Number [facility] [address] [place] [address] * Urinalysis screen and microscopy, with reflex [...] GENOMIC MEDICINE Specific 1.015 1.001 - 1.035 [facility] gravity, OF PATHOLOGY AND GENOMIC MEDICINE [...] PATHOLOGY AND GENOMIC MEDICINE Urobilinogen, Negative <2.0 [facility] UA OF PATHOLOGY AND GENOMIC MEDICINE Leukocyte Moderate (A) Negative [facility] esterase, UA OF PATHOLOGY AND GENOMIC [...] AND GENOMIC MEDICINE Yeast with None seen [facility] pseudohyphae, OF PATHOLOGY UA AND GENOMIC MEDICINE Specimen Urine Performing Organization Address City/[facility] Phone Number [facility] OF [address] [place] [address] PATHOLOGY AND GENOMIC MEDICINE * Gram stain (12/27/2017 1:15 PM CDT) Pathologist [facility] Gram stain No organisms seen [facility] DEPARTMENT result Comment: OF PATHOLOGY Specimen Information AND GENOMIC Specimen Source: Urine MEDICINE Specimen Site: Clean catch Specimen Urine Performing Organization Address City/[facility] Phone Number [facility] [place] [address] PATHOLOGY AND GENOMIC MEDICINE * Urine culture (12/27/2017 1:15 PM CDT) Only the most recent of 2 results within the time period is included. Pathologist [facility] Urine culture Gram positive frandy [facility] DEPARTMENT isolate 10-1 cfu/ml OF PATHOLOGY (A) AND GENOMIC Comment: MEDICINE Specimen Information Specimen Source: Urine Specimen Site: Clean catch Specimen Urine Performing Organization Address [facility] Phone Number [facility] [address] PATHOLOGY AND GENOMIC MEDICINE * B natriuretic peptide (12/27/2017 12:08 PM CDT) Pathologist [facility] BNP 211 (H) 0 - 100 pg/mL [facility] OF PATHOLOGY AND GENOMIC MEDICINE Specimen Blood Performing Organization Address City/[facility]/Zipcode Phone Number [facility] [place] [address] [place] [address] PATHOLOGY AND GENOMIC MEDICINE * ECG ED Preliminary Interpretation - NOT AN ORDER (12/27/2017 11:53 AM CDT) Narrative Performed At Virginie Alcantara MD 12/27/2017 11:53 AM ECG ED Preliminary Interpretation - Not an Order Performed by: VIRGINIE ALCANTARA Authorized by: VIRGINIE ALCANTARA ECG reviewed by ED Physician in the absence of a classer: yes Previous ECG: Previous ECG:Compared to current Interpretation: Interpretation: normal Rate: ECG rate:55 ECG rate assessment: bradycardic Rhythm: Rhythm: sinus rhythm and sinus bradycardia Ectopy: Ectopy: none QRS: QRS axis:Normal Conduction: Conduction: normal ST segments: ST segments:Normal T waves: T waves: normal * XR Chest 1 Vw Portable (12/27/2017 11:47 AM CDT) Specimen Narrative Performed At EXAMINATION:XR CHEST 1 VW PORTABLE [facility] CLINICAL HISTORY:Chest Pain COMPARISON:March 20, 2016 chest IMPRESSION: No acute abnormality. No change compared to previous Hypoinflation of the lungs unchanged. Mild interstitial scarring as before. No infiltrate congestion or effusion. No pneumothorax Cardiomediastinal silhouette normal size. Mild vascular ectasia and atherosclerosis Old rib fractures on the right. Cholecystectomy clips incidentally noted. Contrast in the colon Single view chest [id number] Procedure Note Interface, Radiology Results Incoming - [...] Contrast in the colon Single view chest [facility]-[id number] Performing Organization Address City/[facility]/Zipcode Phone Number [facility] [address] [place] [address] * Phosphorus level (12/25/2017 5:42 AM CDT) Phosphorus 3.2 2.4 - 4.5 mg/dL [facility] OF [facility]OLOGY AND GENOMIC MEDICINE Specimen Plasma specimen Performing Organization Address City/[facility]/Zipcode Phone Number [address] [address] PATHOLOGY AND GENOMIC MEDICINE * Magnesium level (12/25/2017 5:42 AM CDT) Magnesium 2.30 1.60 - 2.40 mg/dL [facility]OLOGY AND GENOMIC MEDICINE Specimen Plasma specimen Performing Organization Address City/[facility]/Zipcode Phone Number [facility] [address] [address] PATHOLOGY AND GENOMIC MEDICINE * Prostate specific antigen (12/24/2017 12:26 PM CDT) PSA 3.2 0.0 - 4.0 ng/mL [facility] DEPARTMENT Comment: OF PATHOLOGY The MARGOT 8000 PSA immunoassay AND GENOMIC was used. MEDICINE Results obtained with different assay methods or kits should not be used interchangeably and may be different. Specimen Plasma specimen Performing Organization Address City/State/Zipcode Phone Number [facility] DEPARTMENT OF [address] [place] [address] PATHOLOGY AND GENOMIC MEDICINE after 10/14/2017 Insurance Type Payer Benefit Subscriber ID Effective Phone Address Plan / Dates Group Medicare MEDICARE MEDICARE xxxxxxxxxxx 2009-P [place], PART A AND resent [place] B O AETNA AETNA xxxxxxxxxx 2017-P HMO,POS,EP resent O, [facility] ([place] [place] [address] Advance Directives Patient has advance care planning documents on file. For more information, clair saxena contact: Jorge L David [address] [facility] [place] [address]
[2018-10-15 11:35] VITALS: BP 130/71
--- NOTE | 2018-10-16 08:26 | Operative Report ---
DATE OF PROCEDURE: 10/15/2018 SURGEON: Kel Rowe MD PREOPERATIVE DIAGNOSES: 1. Left double-J ureteral stent. 2. Post extracorporeal shock wave lithotripsy for large multiple left renal calculi. 3. Multiple bladder calculi. POSTOPERATIVE DIAGNOSES: 1. Left double-J ureteral stent. 2. Post extracorporeal shock wave lithotripsy for large multiple left renal calculi. 3. Multiple bladder calculi. OPERATIONS: 1. Cystourethroscopy and stent removal. 2. Left retrograde pyelogram. 3. Vesicolitholapaxy for all the bladder stones with complete removal of the stones. ANESTHETIC: General. SHOP TEACHER: HEBER Fried. INDICATIONS OF PROCEDURE: Mr. King is a 73-year-old male, who presented with a chief complaint of severe pain on the left side. Workup showed that he has a large left renal calculi. He underwent a cystoscopy, a stent placement, and left ESWL. He presented at this time for stent removal since he passed all the stones. DESCRIPTION OF PROCEDURE: This patient was placed on the table in the lithotomy position and was prepped and draped in a sterile manner after satisfactory anesthesia. A #23-Dominican cystoscope was used and cystourethroscopy was performed and the tail end of the stent was protruding through the left ureteral orifice, which is normal. There were multiple bladder calculi. Under direct vision and fluoroscopic control, the tail end of the stent was grasped and removed completely without difficulty. Left retrograde pyelogram was performed and was unremarkable except for multiple renal left cysts. Vesicolitholapaxy was then performed and all the bladder stones were recovered. The bladder was drained. Cystoscope removed and the patient taken to the recovery room in satisfactory condition. Plans for this patient is to be placed on Cipro 250 mg 1 twice a day for five days. Ultracet tab one every 6 to 8 hours p.r.n. and was given 10. He is to return to the office in about four weeks. He also has an enlarged occlusive prostate gland, which needs to be resected. Kel Rowe MD MA/[facility]WAYNE /[id number]
== END | disposition home or self-care (01) ==
LOC: OR 07:51
PROVIDERS: ATTEND Specialist
DX: N21.0 Calculus in bladder (principal); Z46.6 Encounter for fitting and adjustment of urinary device; Z87.442 Personal history of urinary calculi; N40.0 Benign prostatic hyperplasia without lower urinary tract symptoms; I25.10 Atherosclerotic heart disease of native coronary artery without angina pectoris; I49.3 Ventricular premature depolarization; I10 Essential (primary) hypertension; E11.9 Type 2 diabetes mellitus without complications; K21.9 Gastro-esophageal reflux disease without esophagitis; G47.33 Obstructive sleep apnea (adult) (pediatric); F41.9 Anxiety disorder, unspecified; Z91.041 Radiographic dye allergy status; Z79.4 Long term (current) use of insulin; Z79.82 Long term (current) use of aspirin; Z95.5 Presence of coronary angioplasty implant and graft
CPT/HCPCS: 36415; 52005; 52317; 74420; 82948; 88300; C1758; J1580; J2001; J2250; J2405; J2704; Q9967; J3010